=== PATIENT | male | born 1960 | race Caucasian/White ===

== ENCOUNTER 2016-09-06 13:30 | Inpatient (IN) | payer OTHER ==
[~2016-09-06] VITALS: Ht 172.7 cm; Wt 55.3 kg
--- NOTE | ~2016-09-06 | HP ---
PATIENT'S NAME: ANA RICHARDS [facility] AGE: 56 Y [address] ROOM: [place] [address] LOCATION: ED ADMIT DATE: 09/06/2016 History & Physical DISCHARGE DATE: FAMILY PHYSICIAN: Alfredo Tyler MD ATTENDING PHYSICIAN: YANNI REILLY DATE OF SERVICE: 09/06/2016 ADMISSION MAIN DIAGNOSIS: L5-S1 diskitis/osteomyelitis, severe back pain, bilateral L5 radiculopathy. CLINICAL HISTORY: A full dictation was done on this patient in the office today. The patient was seen in my office today for severe mechanical low back pain. He had lumbar spine MRI on September 04 and the MRI findings were very concerning for L5-S1 diskitis. In the office, the patient was complaining of severe low back pain and bilateral leg pain in L5 distribution. The patient reported poor oral hygiene. He denied fever or chills. He denied weakness on his lower extremities. PHYSICAL EXAMINATION: He had tenderness to palpation of the lumbar spine. Motor examination of the lower extremities was normal. The patient's gait was very uncomfortable due to pain. INVESTIGATIONS: Lumbar spine MRI without contrast. It showed evidence of L5-S1 diskitis/osteomyelitis. It showed evidence of significant collapse of the L5- S1 disk that is associated with severe bilateral L5 foraminal stenosis. The STIR sequence showed significant inflammation in the L5, S1 vertebrae. Those features are very concerning for L5-S1 diskitis/osteomyelitis. PLAN: 1. The patient will be admitted to the hospital. 2. Percutaneous aspiration of L5-S1 disk. The procedure will be done by Dr. Pedrito Rascon. 3. Pain management with OxyContin. I reviewed the imaging with the patient and discussed the findings. I then discussed my plan with him. The patient will be admitted today. YANNI REILLY MD PATIENT'S NAME: ANA RICHARDS [facility] AGE: 56 Y [address] ROOM: [place] [address] LOCATION: ED ADMIT DATE: 09/06/2016 History & Physical DISCHARGE DATE: FAMILY PHYSICIAN: Alfredo Tyler MD ATTENDING PHYSICIAN: YANNI REILLY/nisal /[id number] CC: Alfredo Tyler MD D: [id number] T: [id number] HISTORY & PHYSICAL
--- NOTE | ~2016-09-06 | DS ---
PATIENT'S NAME: ANA RICHARDS [facility] AGE: 56 Y [address] ROOM: [id number] [place], [place] [address] LOCATION: GPED ADMIT DATE: 09/06/2016 Discharge Summary DISCHARGE DATE: 09/09/2016 FAMILY PHYSICIAN: Alfredo Tyler MD ATTENDING PHYSICIAN: Ana Valencia ADMISSION MAIN DIAGNOSIS: L5-S1 diskitis/osteomyelitis. DISCHARGE MAIN DIAGNOSIS: L5-S1 diskitis/osteomyelitis. PROCEDURES DURING ADMISSION: Percutaneous aspiration of L5-S1 disk/culture (done by Dr. Pedrito Rascon on 09/06/2016). COMPLICATIONS DURING ADMISSION: None. DISCHARGE INSTRUCTIONS AND FOLLOWUP APPOINTMENTS: 1. Dr. Ana Valencia on 09/20/2016. 2. Infectious Disease on 09/12/2016. 3. Family doctor as needed. 4. Seek immediate medical attention if having increasing low back pain or any new neurological symptoms/deficits. MEDICATIONS ON DISCHARGE: 1. Resume all pre-admission medications except Mobic. 2. Daptomycin intravenous for 8 weeks. 3. OxyContin 20 mg p.o. q.a.m., 10 mg p.o. q.p.m. 4. Oxycodone 5 to 10 mg every 6 hours as needed. HISTORY OF PRESENT ILLNESS AND HOSPITAL COURSE: Clinical History: The patient is a 56-year-old male patient, who was admitted to the hospital on 09/06/2016 with severe low back pain. He had a lumbar spine MRI done on September 04 and the MRI was concerning for L5-S1 diskitis. On the day of admission, the patient underwent percutaneous aspiration of the L5-S1 disk without complication. The procedure was done by Interventional Radiology. The patient was started on OxyContin to treat the severe low back pain. He remained neurologically stable during the admission. The L5-S1 percutaneous aspiration culture came back positive. The culture was positive for Staphylococcus epidermidis. The Staphylococcus epidermidis was sensitive to vancomycin. The patient was started on the appropriate antibiotics. His pain was slowly getting better, and he had no new weakness in his lower extremities. We also inserted PICC line for the intravenous antibiotic and that was done on September 09. On the day of discharge, the patient was examined. He was mobilizing without any assistance. He was still in moderate low back pain which I think is PATIENT'S NAME: ANA RICHARDS [facility] AGE: 56 Y [address] ROOM: [address] [address] LOCATION: GPED ADMIT DATE: 09/06/2016 Discharge Summary DISCHARGE DATE: 09/09/2016 FAMILY PHYSICIAN: Alfredo Tyler MD ATTENDING PHYSICIAN: Ana Valencia related to the L5-S1 diskitis/osteomyelitis. I reviewed the discharge instructions with the patient as well as the treatment plan. The patient will follow with Infectious Disease on September 12. He will follow with his family physician as needed. I instructed the patient to seek medical attention if having new symptoms or increasing low back pain. The patient asked appropriate questions and those were answered to his satisfaction. The patient will be discharged to home today. MD SALEEM LAWLER/marcie /[id number] CC: Alfredo Tyler MD d: 09/10/16 1046 t: 09/10/16 1222, DISCHARGE SUMMARY
--- NOTE | ~2016-09-06 | CON ---
PATIENT'S NAME: ANA RICHARDS [facility] AGE: 56 Y [address] ROOM: [facility] [place] [address] LOCATION: GPED ADMIT DATE: 09/06/2016 Consultation DISCHARGE DATE: FAMILY PHYSICIAN: Alfredo Tyler MD ATTENDING PHYSICIAN: YANNI VALENCIA DATE OF CONSULTATION: 09/07/2016 REFERRING PHYSICIAN: Bisi Shah MD REASON FOR CARDIOLOGY CONSULT: Establishment of cardiac care. HISTORY OF PRESENT ILLNESS: This is a 56-year-old male, who is currently admitted under the care of Dr. Valencia for complaints of diskitis and is currently status post aspiration. 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 When fully questioned about his health history, he is not very knowledgeable about his condition or the full details surrounding his diagnoses. He is aware on his echocardiogram that some of his valves are "leaky." At the time of this consult, he is resting comfortably in bed, but does have complaints of right hip pain specifically when in a seated position. Overall, he denies headaches, dizziness, presyncope, palpitations, nausea, or vomiting. PAST MEDICAL HISTORY: 1. Bqviy-Flzkvrpic-Clgxk syndrome. 2. Hypertension. 3. COPD. 4. Chronic back pain. 5. Rheumatoid arthritis. 6. GERD. 7. Previous pyelonephritis to the point of needing hemodialysis for a short. PAST SURGICAL HISTORY: 1. Open heart surgery in 1978 for his Yyubf-Vaigkqire-Qcexo syndrome. 2. Previous WPW ablation. 3. History of abscess removal from his left knee and calf. FAMILY HISTORY: Reviewed and noncontributory to his care. SOCIAL HISTORY: The patient is a current daily smoker. He smoked for the past 30 years and smokes a pack and half per day. He denies current alcohol use. He says he last quit drinking in July 2016. He also denies illicit drug use. PATIENT'S NAME: ANA RICHARDS [facility] AGE: 56 Y [address] ROOM: [place] [id number] LOCATION: GPED ADMIT DATE: 09/06/2016 Consultation DISCHARGE DATE: FAMILY PHYSICIAN: Alfredo Tyler MD ATTENDING PHYSICIAN: YANNI VALENCIA CURRENT MEDICATIONS: 1. Spiriva 1 puff inhaled twice daily. 2. Ambien 10 mg p.o. daily in the evening. 3. Arava 20 mg p.o. daily in the evening. 4. Coreg 25 mg p.o. twice daily. 5. Deltasone p.o. daily. 6. Neurontin 100 mg p.o. 3 times daily. 7. Norvasc 5 mg p.o. daily. 8. Prinivil 2.5 mg p.o. daily. 9. Nicoderm 14 mg transdermally daily. MEDICATION ALLERGIES: No known medication allergies. REVIEW OF SYSTEMS: Pertinent positive review of systems present in the HPI. All other review of systems evaluated and negative. PHYSICAL EXAMINATION: VITAL SIGNS: Temperature 99.3, pulse 91, respirations 16, blood pressure 135/90, and O2 saturation 95% on room air. The patient weighs 55.3 kg. SKIN: [place], warm, and dry. EYES: Sclerae clear. No xanthelasmas. ENT: Oral mucosa is pink and moist. No jugular venous distention or carotid bruits. CHEST: Respirations are even and unlabored. Lungs are clear to auscultation. HEART: Regular rate and rhythm. Normal S1 and S2. Does have presence of a 2- 3/6 holosystolic murmur best heard at the apex. ABDOMEN: Soft. Nontender. MUSCULOSKELETAL: Equal muscle strength to upper and lower extremities bilaterally against resistance. EXTREMITIES: Peripheral pulses palpable. No clubbing, cyanosis, or edema. PSYCH: Alert and oriented. Mood and affect are appropriate. IMPRESSION AND PLAN: Per Dr. Shah. 1. History of Durby-Ymreqkrnx-Vthif syndrome. 2. Mitral regurgitation. 3. Chronic obstructive pulmonary disease. 4. Diskitis. We will request his previous health records to fully evaluate his heart history both from [facility] as well as [facility]. We will increase his Coreg dose as well as begin lisinopril 2.5 mg p.o. daily. We will get an echocardiogram PATIENT'S NAME: ANA RICHARDS [facility] AGE: 56 Y [address] ROOM: [place] [address] LOCATION: [facility] ADMIT DATE: 09/06/2016 Consultation DISCHARGE DATE: FAMILY PHYSICIAN: Alfredo Tyler MD ATTENDING PHYSICIAN: YANNI VALENCIA in the a.m. to fully evaluate ejection fraction as well as look for wall motion or valvular abnormalities. We will check a set of blood cultures as well as procalcitonin, CRP, proBNP, cardiac enzymes, lipid, and thyroid studies. We will continue to monitor, evaluate, and treat as appropriate. Thank you for this consult. Thank for allowing [facility] to interact in the care of this patient. CRISTO SINGH APRN FOR DEEPAK-MD DOHERTYH/modl /[id number] d: 09/08/16 1843 t: 09/19/16 1431, CONSULTATION REPORT
--- NOTE | ~2016-09-06 | ECHO ---
Transthoracic Echocardiography Report (TTE) Demographics Patient Name ANA RICHARDS Date of Study 09/08/2016 Patient Number [id number] Visit Number [id number] Date of 1960 Room Number G3325 Gender Male Number Age 56 year(s) Referring Jayson Yeh MD Field Organizer Deanna Strong [facility] Physician Pablo Campbell MD Physician Interpreting Efstratiou Supervisor [employer] Physician Adelaide Wilks MD Supervising Ordering Efstratiou MD/MLP Physician Adelaide Wilks MD Nurse Stress Administrative Aide Conclusions Contractility Score Summary Normal Left Ventricular contractility was noted. Summary The estimated left ventricular ejection fraction is 50-55%. Diastolic assessment reveals Grade II pseudonormal diastolic function . The left atrium is mildly dilated by LA volume index measurement. Moderate mitral regurgitation based on a regurgitant orifice area of .41 cm2. The mitral regurgitant jet is anteriorly directed. Mild tricuspid regurgitation by color Doppler. There is mild pulmonary hypertension. The pulmonary pressure (RVSP) is 38 mmHg. Procedure Type of Study TTE procedure:2D Echocardiogram, M-Mode, Doppler , Color Doppler. Procedure Date Date: 09/08/2016 Start: 10:40 AM Study Location: Inpatient Portable Technical Quality: Good visualization Indications:Rnklu-Kbmeihqav-Eqpkz (WPW) and Murmur. Patient Status: Routine Rhythm: Within normal limits HR: 93 bpm BP: 110/60 mmHg M-Mode/2D Measurements LV Diastolic Dimension: 5.28 cm LV Systolic Dimension: 3.46 cm LV Septum Diastolic: 0.83 cm LV PW Diastolic: 0.85 cm AO Root Dimension: 2.6 cm Cardiac Output: 3.23 l/min AV Cusp Separation: 2.4 cm RV Diastolic Dimension: 2.43 cm LA volume: 60 ml LVOT: 1.7 cm RV Base: 3.9 cm LVOT VTI: 15.3 cm RV Mid: 3.2 cm LV Stroke volume: 34.71 ml TAPSE: 1.65 cm TDI-S': 9.87 cm/s Doppler Measurements AV Peak Velocity: 1.01 m/s MV Peak E-Wave: 0.83 m/s AV Peak Gradient: 4.08 mmHg MV Peak A-Wave: 0.54 m/s AV Mean Gradient: 2 mmHg MV E/A Ratio: 1.54 LVOT Peak Velocity: 0.96 m/s MV P1/2t: 71 msec TR Gradient:33.18 mmHg PV Peak Velocity: 0.76 m/s Estimated RAP:5 mmHg PV Peak Gradient: 2.3 mmHg Estimated RVSP: 38 mmHg Estimated PASP: 38.18 mmHg E' Septal Velocity: 0.08 m/s A' Septal Velocity: 0.11 m/s E' Lateral Velocity: 0.11 m/s A' Lateral Velocity: 0.09 m/s Findings Left Ventricle Diastolic assessment reveals Grade II pseudonormal diastolic function . Right Ventricle Mildly dilated right ventricle. Low normal right ventricular systolic performance. Left Atrium The left atrium is mildly dilated by LA volume index measurement. Right Atrium Normal right atrial size. IVC measures .71 cm with inspiratory collapse. Mitral Valve Mitral regurgitation when calculated by the PISA method is moderate based on a regurgitant orifice area of .41 cm2. The mitral regurgitant jet is anteriorly directed. Aortic Valve Normal aortic valve structure and function. Tricuspid Valve Mild tricuspid regurgitation by color Doppler. There is mild pulmonary hypertension. The pulmonary pressure (RVSP) is 38 mmHg. Pulmonic Valve Normal pulmonic valve structure and function. Pericardial Effusion No evidence of pericardial effusion. Miscellaneous Visualized portions of the aortic root and ascending aorta appear normal in size. Pleural Effusion No evidence of pleural effusion. Signature dtt: Bisi Shah dtd: 09/08/16 1040 Physician Self Edit
[2016-09-06] MEDS ORDERED: COREG12.5 MG PO (14:33)
[2016-09-06] MEDS ORDERED: MOBIC15 MG PO (14:34)
[2016-09-06] MEDS ORDERED: ULTRAM50 MG PO (14:34)
[2016-09-06] MEDS ORDERED: AMBIEN10 MG PO (14:34)
[2016-09-06] MEDS ORDERED: DELTASONE5 MG PO (14:35)
[2016-09-06] MEDS ORDERED: NORVASC5 MG PO (14:35)
[2016-09-06] MEDS ORDERED: ARAVA20 MG PO (14:35)
[2016-09-06] MEDS ORDERED: SPIRIVA HANDIHA1 KIT INH (14:35)
[2016-09-06] MEDS ORDERED: TYLENOL EXTRA500 MG PO (14:36)
[2016-09-06] MEDS ORDERED: FLEXERIL10 MG PO (14:36)
[2016-09-06] MEDS ORDERED: ADVIL200 MG PO (14:37)
[2016-09-06 14:38] LABS: HEMATOCRIT 35.3 % (37.0-53.0); HEMOGLOBIN 11.6 g/dL (12.0-17.0); MCH 31.5 pg (27.0-34.0); MCHC 32.9 gm/dL (32.0-36.5); MCV 95.9 fl (83.0-98.0); MPV 8.3 fl (9.4-12.4); PLATELET COUNT 361 K/uL (150-450); RBC 3.68 M/uL (4.00-6.00); RDW-CV 13.9 % (11.9-14.6); WBC 9.9 K/uL (4.0-11.0)
[2016-09-06] MEDS ORDERED: MAALOX MAXIMUM355 ML PO (14:40)
[2016-09-06 14:46] LABS: PTT 26 SECONDS (25-32)
[2016-09-06 15:08] LABS: ABSOLUTE NEUTROPHIL CT (ANC) 8.5 K/uL (1.4-9.0); BANDED NEUTROPHIL # 0.4 K/uL (0.0-0.1); BANDED NEUTROPHILS % 4 %; LYMPHOCYTE % 10 %; MONOCYTE # 0.3 K/uL (0.0-1.0); SEGMENTED NEUTROPHIL # 8.1 K/uL (1.4-9.0); SEGMENTED NEUTROPHIL % 82 %
--- NOTE | 2016-09-06 15:24 | NUR ---
56 Y/O MALE ADMITTED FOR DISCITIS WITH C/O EXTREME PAIN IN HIS BACK WITH SHOOTING PAINS DOWN HIS RT LEG. PT STATES IT HAS BEEN DIFFICULT TO WALK FOR THE PAST TWO MONTHS. PT IS A&OX3. ABLE TO MOVE ALL 4 EXTREMITIES. DIFFICULTY WALKING FOR THE PAST 2 MONTHS R/T BACK & LEG PAIN. 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 HTN, RHEUMATOID ARTHRITIS, HEARTBURN, COPD, CURRENT SMOKER X 30 YRS @ 1 1/2 PPD, USES INHALERS, AND IS ON ORAL PREDNISONE FOR ARTHRITIS. PT HAS HAD PNEUMONIA IN PAST AND RECENTLY BRONCHITIS WITH A SEVERE HARCH PRODUCTIVE COUGH (GREEN SPUTUM). ALSO HX OF KIDNEY INFECTION WITH HOSPITALIZATION & DIALYSIS SEVERAL YEARS AGO. DIF WITH URINE STREAM, FRACTURED PENIS, NOCTURIA. SOB. ADM EDUCATION COMPLETED REPORT GIVEN TO PT PRIMARY CARE NURSE CARROLL LAGUNA
--- NOTE | 2016-09-06 17:19 | NUR ---
D: Patient has a history of hypertension and has had elevated diastolic blood pressures this afternoon. Patient was done for a biopsy of L5-S1 disk space. Guaze dressing to right lower back dry and intact. Patient does continue to complain of pain 4-6 to back with movement and when lying in bed. Patient oxy initial dosed for tonights dose and 0.3 mg dilaudid given a7 1715 last. Patient denies any numbness or tingling of feet.
--- NOTE | 2016-09-07 02:47 | NUR ---
Significant Event: AAOX3. REGULAR DIET. SBA WITH ACTIVITIES, USES FWW. PIV TO RIGHT WRIST. C/O R) FLANK PAIN (6-10/10) FREQUENTLY THROUGHOUT SHIFT. AMBULATED IN [place] ONCE, WENT UP AND DOWN [place] TWICE, TOLERATED WELL. STATED IT HELPED WITH HIS PAIN. TREATED WITH IVP DILAUDID X3 WITH LAST DOSE AT 0150. PT FELL ASLEEP POST TREATMENT. IN ROOM MOST OF SHIFT. CRACKLES NOTED TO LEFT UPPER LOBE. RIGHT CLEAR. PNEUMATICS APPLIED TO BILAT CALVES. DRESSING DRY/INTACT WITH SCANT SHADOWING TO SIDE FACING PT. PREFERS NONCAFFIENATED SODA TO DRINK OVER WATER. ENCOURAGED PT TO INTAKE WATER OVER SODA, BUT PT STATED IT MADE HIM FEEL SICK WHEN HE DRINKS TOO MUCH WATER. Follow up: PAIN. AMBULATION.
--- NOTE | 2016-09-07 16:06 | NUR ---
Significant Event:patient ambulated in halls once, up to bathroom a few times with assist, Dilaudid 0.2mg given x2, Flexaril given at 1400-may have prn, 1850 urine out + 2 voids, 2 bowel movements-denies need for laxative at this time, rates pain 6-7 mainly in his right hip, encouraged deep breaths hourly as lungs are sl coarse at times-coughing at times Follow up:
[2016-09-07 18:08] LABS: ALBUMIN 3.3 gm/dL (3.5-5.0); ALK PHOS 82 IU/L (33-138); ALT 18 IU/L (12-78); ANION GAP 12.7 (10.0-19.0); AST 16 IU/L (10-40); BLOOD UREA NITROGEN 16 mg/dL (6-24); CALCIUM 8.8 mg/dL (8.5-10.5); CHLORIDE 99 mMol/L (96-110); CO2 27 mMol/L (22-32); CPK 92 IU/L (35-332); CREATININE 0.8 mg/dL (0.6-1.3); ESTIMATED GFR (MDRD EQUATION) > 60; POTASSIUM 4.7 mMol/L (3.7-5.1); SODIUM 134 mMol/L (135-145); TOTAL BILIRUBIN 0.2 mg/dL (0.0-1.5); TOTAL PROTEIN 7.6 g/dL (6.0-8.4)
--- NOTE | 2016-09-08 04:10 | NUR ---
Significant Event: AAOX3. REGULAR DIET. SBA WITH FWW. PIV TO R) WRIST SL. AMBULATED IN [place] NEAR BEGINNING OF SHIFT, TOLERATED WELL. CONSISTENTLY C/O RIGHT HIP PAIN. MD NOTIFIED. N/O GABAPENTEN 100MG PO TID, INITIAL DOSED AROUND 2200. PT STATED IT SEEMED TO HAVE HELPED HIS HIP PAIN. 0.2 DILAUDID IVP ADMIN X2, LAST @ 0130. PT RESTED WELL THROUGHOUT SHIFT. 600 IN PO. 850 OUT, WITH ONE VD. NO BM'S. WAS AT BEDSIDE AT BEGINNING OF SHIFT, LEFT AROUND 2100. PNEUMATICS TO BILAT CALVES ON WHEN IN BED. ORDER ALSO WRITTEN FOR IS, 10 TIMES AN HOUR WHILE AWAKE. Follow up:
--- NOTE | 2016-09-08 15:11 | NUR ---
Significant Event:Dilaudid x4 last at 1454, Flexaril given in am, CHG bath given, Vancomycin started, orders for PICC line in, afebrile, walked in campos, Follow up:skin care consultant will need to see Friday
--- NOTE | 2016-09-09 03:33 | NUR ---
Significant Event: PT SLEPT MOST OF SHIFT. AMBULATED IN [place] ONCE AT BEGINNING OF SHIFT, TOLERATED WELL. IS ENCOURAGED, PT VERY COOPERATIVE WITH IT AND USES IT ON HIS OWN, 10 BREATHS EVERY HOUR WHILE AWAKE. 0.3MG DILAUDED ADMIN X3, LAST AT 0025. PT STARTED ON COLACE FOR C/O CONSTIPATION. DIDN'T WANT AN ENEMA. ENCOURAGED FLUID INTAKE. N/O FOR PROTONIX WRITTEN. INITIAL DOSED TONIGHT. 450 IN PO. 395/IV. 2 VOIDS. Follow up:
--- NOTE | 2016-09-09 15:04 | NUR ---
Phone call from Tammy on PEDS at 0915 today. Tammy states patient will be getting a PICC line today and Dr. Valencia wants to discharge him to home today. Need to arrange home infusion for patient with home health care. Met with patient and his . Introduced myself and the role of the CM department. Patient would like me to check with [facility] for his home infusion needs. I spoke to Germaine, music coordinator with [facility] and arranged for them to provide the Daptomycin for patient. [facility] is in network for the patient. He has met all of his $1500 deductible and has met $1800 of his $3000 out of pocket maximum. Shared all of this with and patient. Germaine with [facility] is helping set up home health care through [facility] too. Bettye patient liason with [facility] arrived at the hospital around 1215 to meet with patient and . She showed them the bulb device for the administration of the med at home. Bettye also talked to them about the home health care options and will proceed with setting them up through [facility]. All paperwork and documents were faxed to Germaine at [facility] at [phone] fax. I also contacted [facility] as Dr. Valencia signed a script for a front wheeled walker for patient. I faxed face sheet and script to [facility] at [phone] and a hobbies and crafts sales representative will call the patient as soon as they have checked benefits with insurance and have the walker ready for mushroom picker. Patient should not have any additional discharge needs. All orders have been faxed to above agencies and all patient and 's questions have been answered.
[2016-09-09] MEDS ORDERED: COLACE100 MG PO (15:05)
[2016-09-09] MEDS ORDERED: DAPTOMYCIN500 MG IV (15:25)
[2016-09-09] MEDS ORDERED: NEURONTIN300 MG PO (15:29)
[2016-09-09] MEDS ORDERED: ROXICODONE 5MG (5 MG PO (15:30)
[2016-09-09] MEDS ORDERED: OXYCONTIN EXTEN20 MG PO (15:31)
[2016-09-09] MEDS ORDERED: OXYCONTIN EXTEN10 MG PO (15:31)
--- NOTE | 2016-09-09 16:13 | NUR ---
Significant Event: Afebrile. Continues to have pain in his right hip area but this is controled by PO and IV medications. PICC placed in his upper right arm today and first dose of IV daptomycin given without difficulty. Home health/home infusion arranged. Denies Numbness and tingling to lower extremities and state the neurontin has helped. Steady for the most part with ambulation with use of walker and stand-by assist. Biopsy/culture site from back is scabbed and without redness or drainage. Follow up:Dismissed. PICC line intact.
== END 2016-09-09 16:13 | disposition home health service (06) | DRG 478 ==
LOC: GPED 13:47
PROVIDERS: Internal Medicine Cardiovascular Disease; ADMIT Neurological Surgery
PROC: 0Q903ZX Drainage of Lumbar Vertebra, Percutaneous Approach, Diagnostic (ICD-10-PCS; principal; 2016-09-06)
PROC: 02HV33Z Insertion of Infusion Device into Superior Vena Cava, Percutaneous Approach (ICD-10-PCS; 2016-09-09)
DX: M46.27 Osteomyelitis of vertebra, lumbosacral region (principal); I42.9 Cardiomyopathy, unspecified; M46.47 Discitis, unspecified, lumbosacral region; I10 Essential (primary) hypertension; M06.9 Rheumatoid arthritis, unspecified; J44.9 Chronic obstructive pulmonary disease, unspecified; K21.9 Gastro-esophageal reflux disease without esophagitis; F17.200 Nicotine dependence, unspecified, uncomplicated; I34.0 Nonrheumatic mitral (valve) insufficiency; I45.6 Pre-excitation syndrome; K59.00 Constipation, unspecified; B95.7 Other staphylococcus as the cause of diseases classified elsewhere; R26.9 Unspecified abnormalities of gait and mobility
CPT/HCPCS: C1751; J0878; J1170; J2250; J3010; J3370; J7030; J7040; J7050; J7512

== ENCOUNTER → 2016-09-17 | Outpatient (CLI) | payer OTHER ==
[~2016-09-17] MED LIST: ADVIL200 MG PO; AMBIEN10 MG PO; ARAVA20 MG PO; COLACE100 MG PO; COREG12.5 MG PO; CUBICIN (NON-F500 MG IV; DAPTOMYCIN500 MG IV; DELTASONE2.5 MG PO; DELTASONE5 MG PO; ELAVIL25 MG PO; FLEXERIL10 MG PO; LYRICA 150MG C150 MG PO; MAALOX MAXIMUM355 ML PO; MOBIC15 MG PO; NEURONTIN300 MG PO; NORVASC5 MG PO; OXYCONTIN EXTEN10 MG PO; OXYCONTIN EXTEN20 MG PO; OXYMORPHONE HCL30 MG PO; OXYMORPHONE HCL5 MG PO; ROXICODONE 5MG (5 MG PO; SPIRIVA HA30 CAP/INH PO; SPIRIVA HANDIHA1 KIT INH; TYLENOL EXTRA500 MG PO; ULTRAM50 MG PO
[2016-09-17 16:02] LABS: BASOPHIL % 0.2 %; EOSINOPHIL # 0.2 K/uL (0.0-0.5); EOSINOPHIL % 1.6 %; HEMATOCRIT 39.5 % (37.0-53.0); HEMOGLOBIN 12.8 g/dL (12.0-17.0); IMMATURE GRANULOCYTE % 0.3 %; LYMPHOCYTE # 1.1 K/uL (0.8-4.0); LYMPHOCYTE % 10.3 %; MCHC 32.4 gm/dL (32.0-36.5); MCV 95.6 fl (83.0-98.0); MONOCYTE # 0.8 K/uL (0.0-1.0); MONOCYTE % 7.9 %; MPV 8.9 fl (9.4-12.4); NEUTROPHIL # (ANC) 8.5 K/uL (1.4-9.0); NEUTROPHIL % 79.7 %; NRBC % 0 /100WBC (0-0.00); PLATELET COUNT 386 K/uL (150-450); RBC 4.13 M/uL (4.00-6.00); RDW-CV 13.5 % (11.9-14.6); WBC 10.6 K/uL (4.0-11.0)
[2016-09-17 16:15] LABS: ALBUMIN 3.4 gm/dL (3.5-5.0); ALK PHOS 186 IU/L (33-138); ALT 58 IU/L (12-78); ANION GAP 12.8 (10.0-19.0); AST 78 IU/L (10-40); BLOOD UREA NITROGEN 14 mg/dL (6-24); CALCIUM 8.7 mg/dL (8.5-10.5); CHLORIDE 95 mMol/L (96-110); CO2 28 mMol/L (22-32); CPK 108 IU/L (35-332); ESTIMATED GFR (MDRD EQUATION) > 60; POTASSIUM 4.8 mMol/L (3.7-5.1); SODIUM 131 mMol/L (135-145); TOTAL PROTEIN 7.7 g/dL (6.0-8.4)
[2016-09-17 16:18] LABS: TOTAL BILIRUBIN 0.5 mg/dL (0.0-1.5)
== END | disposition disaster alternative care site (69) ==
LOC: LOC 15:55
PROVIDERS: Internal Medicine Infectious Disease
DX: M46.28 Osteomyelitis of vertebra, sacral and sacrococcygeal region (principal)

== ENCOUNTER 2016-09-23 16:47 | Emergency (ER) | payer OTHER ==
--- NOTE | ~2016-09-23 | ER ---
PATIENT'S NAME: ANA RICHARDS [facility] AGE: 56 Y [address] ROOM: [place] [address] LOCATION: [facility] ADMIT DATE: 09/23/2016 ER/Outpatient Report DISCHARGE DATE: 09/23/2016 FAMILY PHYSICIAN: Alfredo Tyler MD ATTENDING PHYSICIAN: Kain Merrill Time of Arrival: 1648 hours. Time of Evaluation: 1648 hours. CHIEF COMPLAINT: Right hip pain. HISTORY OF PRESENT ILLNESS: The patient states that he was recently here in the hospital with diskitis and osteomyelitis of his lower back, was sent home on September 16, 2016. States that he has had continuation of pain, starts in the right hip, it goes all the way down his leg, into his foot. Pain has gotten worse as the week has gone on. He does have some medications that are prescribed for him, but he has not gone to pick them up yet. He did see Dr. Alfredo Tyler today, and Dr. Tyler wanted him to be reevaluated here in the ER. He denies having any recent injury, has not fallen, has not lifted anything, has not done anything out of the norm. ALLERGIES: NO KNOWN ALLERGIES. CURRENT MEDICATIONS: On his chart and reviewed by me. PAST MEDICAL HISTORY: Includes diskitis, osteomyelitis, Cddqo-Clvpiajdk-Cqstz syndrome, hypertension, COPD, chronic back pain, rheumatoid arthritis, and reflux. 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 SOCIAL HISTORY: Does smoke a pack per day and has for the last 30 years. Denies use of drugs or alcohol. He presents to the ER with his . REVIEW OF SYSTEMS: All negative other than those mentioned in the HPI. PHYSICAL EXAMINATION: VITAL SIGNS: He weighs 52.5 kg, blood pressure is 141/93, pulse of 90, PATIENT'S NAME: ANA RICHARDS [facility] AGE: 56 Y [address] ROOM: [place] [address] LOCATION: [facility] ADMIT DATE: 09/23/2016 ER/Outpatient Report DISCHARGE DATE: 09/23/2016 FAMILY PHYSICIAN: Alfredo Tyler MD ATTENDING PHYSICIAN: Kain Merrill respirations 22, temperature of 97.7, O2 saturations 100% on room air. GENERAL: He is awake, alert, and oriented x4. SKIN: His skin is pink, warm, and dry. RESPIRATIONS: Even and nonlabored. Lung sounds are clear throughout. HEART: Regular rate and rhythm. He is tender to palpate along the right hip area. No peripheral edema noted. EXTREMITIES: Positive peripheral pulses. He has pain in the hip with range of motion. EMERGENCY DEPARTMENT COURSE: The patient was given Percocet 5/[address] Merrill did examine the patient. Lab work was done. CBC is within normal limits. Sedimentation rate was 53; on September 17, 2016, it was 52. Chem panel shows sodium 138, potassium is 4, chloride 105, BUN is 12 with a creatinine of 0.8. Alkaline phosphatase is 177. CRP is 3.73; on September 17, 2016, it was 10.4. EMERGENCY DEPARTMENT COURSE: Dr. Merrill did talk with Dr. Valencia. He recommended doing an MRI. MRI with and without contrast was done of the lumbar spine. Radiologist reports no acute focal findings. Dr. Merrill did talk to the patient regarding the MRI results. IMPRESSION: Hip pain. PLAN: Home, rest. Continue his current medications and treatment plans. He is to get the medications filled that he has prescriptions for and to follow up with Dr. Tyler within the next [address] Valencia. He and his verbalized understanding. JUANCARLOS LYNNE APRN FOR MD DEYSI SUTHERLAND/marcie /[id number] I have personally evaluated this patient. I discussed the patient's care with the CHEF TEACHER and agree with the assessment and plan as documented above. Kain Merrill MD d: 09/24/16 0105 t: 10/08/16 0806, OUTPATIENT REPORT
[~2016-09-23 16:47] MED LIST changes: -CUBICIN (NON-F500 MG IV; -DELTASONE2.5 MG PO; -ELAVIL25 MG PO; -LYRICA 150MG C150 MG PO; -OXYMORPHONE HCL30 MG PO; -OXYMORPHONE HCL5 MG PO; -SPIRIVA HA30 CAP/INH PO
[2016-09-23 17:29] LABS: BASOPHIL % 0.3 %; EOSINOPHIL # 0.1 K/uL (0.0-0.5); EOSINOPHIL % 0.6 %; HEMATOCRIT 42.7 % (37.0-53.0); HEMOGLOBIN 14.1 g/dL (12.0-17.0); IMMATURE GRANULOCYTE # 0.1 K/uL (0.0-0.3); IMMATURE GRANULOCYTE % 0.6 %; LYMPHOCYTE # 0.8 K/uL (0.8-4.0); LYMPHOCYTE % 10.5 %; MCH 30.7 pg (27.0-34.0); MONOCYTE # 0.4 K/uL (0.0-1.0); MONOCYTE % 4.4 %; MPV 8.6 fl (9.4-12.4); NEUTROPHIL # (ANC) 6.7 K/uL (1.4-9.0); NEUTROPHIL % 83.6 %; NRBC % 0 /100WBC (0-0.00); PLATELET COUNT 334 K/uL (150-450); RBC 4.59 M/uL (4.00-6.00); RDW-CV 13.4 % (11.9-14.6)
[2016-09-23 17:43] LABS: ALBUMIN 3.4 gm/dL (3.5-5.0); ALK PHOS 177 IU/L (33-138); ALT 25 IU/L (12-78); AST 13 IU/L (10-40); BLOOD UREA NITROGEN 12 mg/dL (6-24); CALCIUM 8.8 mg/dL (8.5-10.5); CHLORIDE 105 mMol/L (96-110); CO2 24 mMol/L (22-32); CREATININE 0.8 mg/dL (0.6-1.3); ESTIMATED GFR (MDRD EQUATION) > 60; SODIUM 138 mMol/L (135-145); TOTAL BILIRUBIN 0.4 mg/dL (0.0-1.5); TOTAL PROTEIN 7.7 g/dL (6.0-8.4)
== END 2016-09-23 18:34 | disposition disaster alternative care site (69) ==
LOC: GMED 16:47
PROVIDERS: Emergency Medicine
DX: M25.551 Pain in right hip (principal); M06.9 Rheumatoid arthritis, unspecified; K21.9 Gastro-esophageal reflux disease without esophagitis; I10 Essential (primary) hypertension; J44.9 Chronic obstructive pulmonary disease, unspecified; M86.9 Osteomyelitis, unspecified; I45.6 Pre-excitation syndrome; F17.210 Nicotine dependence, cigarettes, uncomplicated
CPT/HCPCS: A9577

== ENCOUNTER → 2016-09-23 | Outpatient (CLI) | payer OTHER ==
[2016-09-23 15:12] LABS: BASOPHIL % 0.3 %; EOSINOPHIL # 0.2 K/uL (0.0-0.5); HEMATOCRIT 40.6 % (37.0-53.0); HEMOGLOBIN 13.5 g/dL (12.0-17.0); IMMATURE GRANULOCYTE % 0.5 %; MCH 30.8 pg (27.0-34.0); MCHC 33.3 gm/dL (32.0-36.5); MCV 92.7 fl (83.0-98.0); MONOCYTE # 0.9 K/uL (0.0-1.0); MONOCYTE % 11.5 %; MPV 8.9 fl (9.4-12.4); NEUTROPHIL # (ANC) 4.7 K/uL (1.4-9.0); NEUTROPHIL % 59.7 %; NRBC % 0 /100WBC (0-0.00); PLATELET COUNT 402 K/uL (150-450); RBC 4.38 M/uL (4.00-6.00); RDW-CV 13.5 % (11.9-14.6); WBC 7.9 K/uL (4.0-11.0)
[2016-09-23 15:34] LABS: ALBUMIN 3.2 gm/dL (3.5-5.0); ALK PHOS 168 IU/L (33-138); ALT 28 IU/L (12-78); ANION GAP 15.3 (10.0-19.0); AST 17 IU/L (10-40); BLOOD UREA NITROGEN 13 mg/dL (6-24); CALCIUM 8.7 mg/dL (8.5-10.5); CHLORIDE 100 mMol/L (96-110); CO2 26 mMol/L (22-32); CPK 41 IU/L (35-332); CREATININE 0.8 mg/dL (0.6-1.3); ESTIMATED GFR (MDRD EQUATION) > 60; POTASSIUM 4.3 mMol/L (3.7-5.1); SODIUM 137 mMol/L (135-145); TOTAL BILIRUBIN 0.4 mg/dL (0.0-1.5); TOTAL PROTEIN 7.4 g/dL (6.0-8.4)
== END | disposition disaster alternative care site (69) ==
LOC: LOC 15:08
PROVIDERS: Neurological Surgery
DX: M46.28 Osteomyelitis of vertebra, sacral and sacrococcygeal region (principal)

== ENCOUNTER → 2016-09-30 | Outpatient (CLI) | payer OTHER ==
[~2016-09-30] MED LIST changes: +CUBICIN (NON-F500 MG IV; +DELTASONE2.5 MG PO; +ELAVIL25 MG PO; +LYRICA 150MG C150 MG PO; +OXYMORPHONE HCL30 MG PO; +OXYMORPHONE HCL5 MG PO; +SPIRIVA HA30 CAP/INH PO
[2016-09-30 16:43] LABS: BASOPHIL % 0.3 %; EOSINOPHIL # 0.2 K/uL (0.0-0.5); EOSINOPHIL % 1.9 %; HEMATOCRIT 44.9 % (37.0-53.0); HEMOGLOBIN 14.5 g/dL (12.0-17.0); IMMATURE GRANULOCYTE % 0.3 %; LYMPHOCYTE % 9.2 %; MCH 30.7 pg (27.0-34.0); MCHC 32.3 gm/dL (32.0-36.5); MCV 94.9 fl (83.0-98.0); MONOCYTE # 0.4 K/uL (0.0-1.0); MONOCYTE % 3.5 %; MPV 8.9 fl (9.4-12.4); NEUTROPHIL # (ANC) 9.1 K/uL (1.4-9.0); NEUTROPHIL % 84.8 %; NRBC % 0 /100WBC (0-0.00); RBC 4.73 M/uL (4.00-6.00); RDW-CV 13.5 % (11.9-14.6); WBC 10.7 K/uL (4.0-11.0)
[2016-09-30 16:45] LABS: PLATELET COUNT 402 K/uL (150-450)
[2016-09-30 16:56] LABS: ALBUMIN 3.5 gm/dL (3.5-5.0); ALK PHOS 114 IU/L (33-138); ALT 19 IU/L (12-78); ANION GAP 12.5 (10.0-19.0); AST 15 IU/L (10-40); BLOOD UREA NITROGEN 9 mg/dL (6-24); CALCIUM 9.1 mg/dL (8.5-10.5); CHLORIDE 106 mMol/L (96-110); CO2 25 mMol/L (22-32); CPK 58 IU/L (35-332); CREATININE 0.8 mg/dL (0.6-1.3); ESTIMATED GFR (MDRD EQUATION) > 60; POTASSIUM 4.5 mMol/L (3.7-5.1); SODIUM 139 mMol/L (135-145); TOTAL PROTEIN 7.8 g/dL (6.0-8.4)
[2016-09-30 17:00] LABS: TOTAL BILIRUBIN 0.2 mg/dL (0.0-1.5)
== END | disposition disaster alternative care site (69) ==
LOC: LOC 16:35
PROVIDERS: Internal Medicine Infectious Disease
DX: M46.28 Osteomyelitis of vertebra, sacral and sacrococcygeal region (principal)

== ENCOUNTER → 2016-10-07 | Outpatient (CLI) | payer OTHER | END | disposition disaster alternative care site (69) | LOC: LOC 15:52 | DX: M46.28 Osteomyelitis of vertebra, sacral and sacrococcygeal region (principal) ==

== ENCOUNTER → 2016-10-14 | Outpatient (CLI) | payer OTHER | END | disposition disaster alternative care site (69) | LOC: LOC 15:55 | DX: M46.28 Osteomyelitis of vertebra, sacral and sacrococcygeal region (principal) ==

== ENCOUNTER → 2016-10-22 | Outpatient (CLI) | payer OTHER | END | disposition disaster alternative care site (69) | LOC: LOC 15:58 | DX: M46.28 Osteomyelitis of vertebra, sacral and sacrococcygeal region (principal) ==

== ENCOUNTER → 2016-10-29 | Outpatient (CLI) | payer OTHER | END | disposition disaster alternative care site (69) | LOC: LOC 16:01 | DX: M46.28 Osteomyelitis of vertebra, sacral and sacrococcygeal region (principal) ==

== ENCOUNTER → 2016-11-05 | Outpatient (CLI) | payer OTHER | END | disposition disaster alternative care site (69) | LOC: LOC 17:39 | DX: M46.28 Osteomyelitis of vertebra, sacral and sacrococcygeal region (principal) ==

== ENCOUNTER 2016-11-08 21:09 | Emergency (ER) | payer OTHER ==
--- NOTE | ~2016-11-08 | ER ---
PATIENT'S NAME: ANA RICHARDS [facility] AGE: 56 Y [address] ROOM: [place] [address] LOCATION: [facility] ADMIT DATE: 11/08/2016 ER/Outpatient Report DISCHARGE DATE: 11/08/2016 FAMILY PHYSICIAN: Alfredo Tyler MD ATTENDING PHYSICIAN: Zora Jenkins HISTORY OF PRESENT ILLNESS: This is a 56-year-old male, who presents today with chief complaint of right lower back pain and right hip pain. The patient has had this pain for about 2 months after he was diagnosed with L5-S1 diskitis and osteomyelitis. He currently has a PICC line in his right AV and has been having IV antibiotics through that. He is on 2 different antibiotics at this time. The patient reports that he was sent home with some narcotics, which he says is not working. He went and called his pain doctor, Dr. Jones and Dr. Jones up the dose, but he says it is still not working. The patient is worried that the infection is getting worse. Although, he denies any fever, chills, nausea, vomiting, or any other complaints at this time. He was also here on 09/23/2016 for increasing pain under which he had an MRI done with and without contrast and the radiologist reported that there were no acute focal findings. He reports that he called Dr. Tyler to ask what to do and Dr. Tyler said to go to the ER. No other complaints at this time. He states that he is compliant with his medications. PAST MEDICAL HISTORY: Includes diskitis, osteomyelitis, WPW syndrome, hypertension, COPD, chronic back pain, rheumatoid arthritis, and reflux. PAST SURGICAL HISTORY: History of open heart surgery at the age of 18 with WPW and also had an ablation 5 years ago for the WPW. SOCIAL HISTORY: He smokes a pack per day and has done so for the last 30 plus years. Denies any IV drug use ever. No alcohol use. REVIEW OF SYSTEMS: Reviewed by me and negative with the exception of those discussed in the HPI. ALLERGIES: NONE. MEDICATIONS: Please see med list. PHYSICAL EXAMINATION: PATIENT'S NAME: ANA RICHARDS [facility] AGE: 56 Y [address] ROOM: [place] [address] LOCATION: [facility] ADMIT DATE: 11/08/2016 ER/Outpatient Report DISCHARGE DATE: 11/08/2016 FAMILY PHYSICIAN: Alfredo Tyler MD ATTENDING PHYSICIAN: Zora Jenkins VITAL SIGNS: The patient is 5 foot 8 inch, his weight is 54.2 kilos, blood pressure 170/112, heart rate 94, respiratory rate 16, temperature is 97.6 and tympanic, saturating 97% on room air. GENERAL: The patient looks uncomfortable. He did walk into the ER although with the limp. He is lying on his left side and holding his right back. He looks mildly uncomfortable, although nontoxic. He is able to move his legs. NEUROLOGIC: He is alert and oriented x4. He is able to move all extremities. His GCS is 15. SKIN: Warm, dry, and intact. HEART: Regular rate and rhythm. LUNGS: His lungs sounds are clear. ABDOMEN: Soft, nontender. BACK: He has some tenderness at the L5 although it is not erythematous and it is not warm to touch. I do not feel like any mass or bulge there. He is also mildly tender at the right SI. He says that when I touch it, he feels like the shooting pain down his legs. He denies any bowel or bladder symptoms either though. EXTREMITIES: He has diminished strength in that right lower extremity secondary to pain, but he reports intact sensation to bilateral lower extremities. As noted, there is no redness or erythema that is noted on his back. EMERGENCY ROOM COURSE: The patient was given 1 mg of IV Dilaudid through his PICC line. He says he feels a lot better. He thinks this was working, so we will be sending him home with this. I did tell him that he is on a lot of pain medications at this time, so I can only give him a little bit until he can follow up with Dr. Jones. I asked him to call Dr. Jones tomorrow. The patient understanding doubt new infection and worsening infection. He does not have any new neuro symptoms, just sort of pain that is not intractable though. I would not pursue any imaging at this time or lab work as it seems like an exacerbation of chronic pain, but no neuro symptoms and no new red flags on physical or history. IMPRESSION: Back pain. MD ARNULFO GRAVES/marcie PATIENT'S NAME: ANA RICHARDS [facility] AGE: 56 Y [address] ROOM: [place] [address] LOCATION: [facility] ADMIT DATE: 11/08/2016 ER/Outpatient Report DISCHARGE DATE: 11/08/2016 FAMILY PHYSICIAN: Alfredo Tyler MD ATTENDING PHYSICIAN: Zora Jenkins /[id number] d: 11/09/160 t: 11/11/16 0028, OUTPATIENT REPORT
[~2016-11-08 21:09] MED LIST changes: -CUBICIN (NON-F500 MG IV; -DELTASONE2.5 MG PO; -ELAVIL25 MG PO; -LYRICA 150MG C150 MG PO; -OXYMORPHONE HCL30 MG PO; -OXYMORPHONE HCL5 MG PO; -SPIRIVA HA30 CAP/INH PO
== END 2016-11-08 22:16 | disposition disaster alternative care site (69) ==
LOC: GMED 21:09
DX: M54.5 Low back pain (principal); G89.29 Other chronic pain; J44.9 Chronic obstructive pulmonary disease, unspecified; I10 Essential (primary) hypertension; M06.9 Rheumatoid arthritis, unspecified; K21.9 Gastro-esophageal reflux disease without esophagitis
CPT/HCPCS: J1170

== ENCOUNTER → 2016-11-11 | Outpatient (CLI) | payer OTHER ==
[~2016-11-11] MED LIST changes: +CUBICIN (NON-F500 MG IV; +DELTASONE2.5 MG PO; +ELAVIL25 MG PO; +LYRICA 150MG C150 MG PO; +OXYMORPHONE HCL30 MG PO; +OXYMORPHONE HCL5 MG PO; +SPIRIVA HA30 CAP/INH PO
== END | disposition disaster alternative care site (69) ==
LOC: GRAD 14:00
DX: M54.16 Radiculopathy, lumbar region (principal); R93.8 Abnormal findings on diagnostic imaging of other specified body structures; M47.9 Spondylosis, unspecified; M43.16 Spondylolisthesis, lumbar region; M48.06 Spinal stenosis, lumbar region

== ENCOUNTER → 2016-11-12 | Outpatient (CLI) | payer OTHER | END | disposition disaster alternative care site (69) | LOC: LOC 15:11 | DX: M46.28 Osteomyelitis of vertebra, sacral and sacrococcygeal region (principal) ==

== ENCOUNTER 2016-11-13 20:49 | Emergency (ER) | payer OTHER ==
--- NOTE | ~2016-11-13 | ER ---
PATIENT'S NAME: ANA RICHARDS [facility] AGE: 56 Y [address] ROOM: [place] [address] LOCATION: ED ADMIT DATE: 11/13/2016 ER/Outpatient Report DISCHARGE DATE: 11/13/2016 FAMILY PHYSICIAN: Alfredo Tyler MD ATTENDING PHYSICIAN: Carla Caceres Time of Arrival: 2049 hours. Time of Evaluation: 2200 hours. IDENTIFICATION: A 56-year-old male. CHIEF COMPLAINT: Bruising. HISTORY OF PRESENT ILLNESS: The patient has been treated since August for diskitis with IV antibiotics. He has a PICC line in his right upper extremity. Yesterday, they tried to draw blood from it and could not draw back, but it flushed okay. He is getting his antibiotic, which he is not sure what it is. He said it begins with a "D." It looks like in August he was getting daptomycin. They infused that tonight at about 5:00 p.m. Normally, he gets up between 3:00 and 4:00. After that, he noted some bruising above his PICC line area and a "pinching" sensation. No other problems or concerns. No numbness or tingling. No swelling in his arm. No fever or chills. He continues to have back pain, and states that he recently had an MRI and his significant other said it "was bad." They have an appointment tomorrow morning with Infectious Disease at 9:00 a.m. I do see an MRI that was dated November 11 showing increased signal within the disk space at the L4-L5 level raising the question of possible diskitis, everything else appeared to be stable. PAST MEDICAL HISTORY: ALLERGIES: NO KNOWN DRUG ALLERGIES. CURRENT MEDICATIONS: 1. Oxymorphone ER 30 mg b.i.d. 2. Oxymorphone ER 5 mg 3 times a day as needed. 3. Norvasc. 4. Coreg. 5. Prednisone 10 mg daily. 6. Gabapentin 300 mg 3 times a day. 7. His IV antibiotics, again he is not certain what it is, but could be daptomycin. PATIENT'S NAME: ANA RICHARDS [facility] AGE: 56 Y [address] ROOM: [place] [address] LOCATION: [facility] ADMIT DATE: 11/13/2016 ER/Outpatient Report DISCHARGE DATE: 11/13/2016 FAMILY PHYSICIAN: Alfredo Tyler MD ATTENDING PHYSICIAN: Carla Caceres MEDICAL PROBLEMS: Diskitis, osteomyelitis, Uhejw-Piiefguqp-Vvkzf syndrome, hypertension, COPD, chronic back pain, rheumatoid arthritis, and gastroesophageal reflux disease. PRIOR SURGERIES: Open heart surgery in 1978 for his Sdkdt-Dfhlcmama-Idlqh syndrome and previous WPW ablation and history of abscess removal from his left knee and calf. SOCIAL HISTORY: The patient is , lives here in [place]. He works at [employer]. Tobacco use, 1 pack per day. Alcohol use, denies. Drug use, denies. REVIEW OF SYSTEMS: All systems reviewed and negative other than what is noted in the HPI. PHYSICAL EXAMINATION: VITAL SIGNS: Weight 53.8 kg. Blood pressure 132/89, pulse 91, respirations 20, temperature 97.8, and saturations 95% on room air. GENERAL: A 56-year-old male, in no acute distress. HEENT: Unremarkable. LUNGS: Clear to auscultation. HEART: Regular rate and rhythm. ABDOMEN: Soft, nondistended, nontender. SKIN: [place], warm, and dry. No lesions or rashes noted. The patient does have an area of ecchymosis above his PICC line, nontender to palpation, but he does state has a "pinching" sensation. EXTREMITIES: He has a good distal pulse. Capillary refill is normal. Sensation is intact. He has no redness or warmth. No axillary lymphadenopathy. He complains of pain that radiates down his right leg, but that is not new. IMAGING DATA: He had a recent MRI done and followup appointment with Infectious Disease tomorrow. IMPRESSION AND PLAN: 1. Bruising above PICC line. They will not be using this PICC line again until tomorrow afternoon. I advised that he follow up tomorrow with PICC nurse on-call when he is seeing Infectious Disease in the morning. Watch for redness, swelling, fever, or chills; if see any of that, return sooner. 2. Diskitis with continued pain down his right leg. Pain medicine as already ordered at home, and keep his followup appointment with Infectious Disease in the morning. The patient understands and agrees PATIENT'S NAME: ANA RICHARDS [facility] AGE: 56 Y [address] ROOM: [place] [address] LOCATION: [facility] ADMIT DATE: 11/13/2016 ER/Outpatient Report DISCHARGE DATE: 11/13/2016 FAMILY PHYSICIAN: Alfredo Tyler MD ATTENDING PHYSICIAN: Carla Caceres and all questions have been answered. MD HILDA INIGUEZ/modl /[id number] d: 11/14/16623 t: 11/24/16629, OUTPATIENT REPORT
[~2016-11-13 20:49] MED LIST changes: -CUBICIN (NON-F500 MG IV; -DELTASONE2.5 MG PO; -ELAVIL25 MG PO; -LYRICA 150MG C150 MG PO; -OXYMORPHONE HCL30 MG PO; -OXYMORPHONE HCL5 MG PO; -SPIRIVA HA30 CAP/INH PO
== END 2016-11-13 22:26 | disposition disaster alternative care site (69) ==
LOC: GMED 20:49
DX: S40.022A Contusion of left upper arm, initial encounter (principal); M46.46 Discitis, unspecified, lumbar region; I10 Essential (primary) hypertension; J44.9 Chronic obstructive pulmonary disease, unspecified; K21.9 Gastro-esophageal reflux disease without esophagitis; M06.9 Rheumatoid arthritis, unspecified; F17.210 Nicotine dependence, cigarettes, uncomplicated; Z79.899 Other long term (current) drug therapy; X58.XXXA Exposure to other specified factors, initial encounter

== ENCOUNTER 2016-11-26 15:15 | Emergency (ER) | payer OTHER ==
--- NOTE | ~2016-11-26 | ER ---
PATIENT'S NAME: ANA RICHARDS [facility] AGE: 56 Y [address] ROOM: [place] [id number] LOCATION: [facility] ADMIT DATE: 11/26/2016 ER/Outpatient Report DISCHARGE DATE: 11/26/2016 FAMILY PHYSICIAN: Alfredo Tyler MD ATTENDING PHYSICIAN: Kain Cintron Time of Patient's Arrival: 1515 hours. Time of Patient's Evaluation: 1545 hours. CHIEF COMPLAINT: Nausea and vomiting. HISTORY OF PRESENT ILLNESS: This is a 56-year-old male who presents to the ER, who has been dealing with diskitis for several weeks. He states he had a PICC line in place, has been receiving some IV antibiotics, and they discontinued the PICC line a couple of weeks ago. He states he has been doing oral antibiotics for this as well as seeing an Infectious Disease doctor. He states that he has chronic pain from this and has been seeing a pain specialist for this as well. He states the nausea and vomiting started on Friday, he has had some loose stools though he would not say that it was diarrhea, he has had no constipation, and a little bit of chills as well. The patient did go and see his primary care physician in the clinic and they sent him here to the emergency room to be evaluated. The patient denies any significant abdominal pain. No chest pain. ALLERGIES: NO KNOWN ALLERGIES. MEDICATIONS: Please see medication list in nurse's notes. PAST MEDICAL HISTORY: 1. Rheumatoid arthritis. 2. Murbp-Jyfzjwinp-Klndu. 3. Diskitis. 4. COPD. 5. Hypertension. 6. Osteoarthritis. PAST SURGERIES: Open heart surgery. SOCIAL HISTORY: He smokes cigarettes. He denies any drug or alcohol use. PATIENT'S NAME: ANA RICHARDS [facility] AGE: 56 Y [address] ROOM: [place] [address] LOCATION: [facility] ADMIT DATE: 11/26/2016 ER/Outpatient Report DISCHARGE DATE: 11/26/2016 FAMILY PHYSICIAN: Alfredo Tyler MD ATTENDING PHYSICIAN: Kain Cintron REVIEW OF SYSTEMS: A 10-point review of systems was completed and was negative with the exception of those discussed in the HPI. PHYSICAL EXAMINATION: VITAL SIGNS: Weight 54.1 kg taken, blood pressure is 136/94, pulse 103, respirations 22, temperature 97.1 degrees tympanically, and saturation is 98% on room air. [place] Coma Score is 15. GENERAL: Alert, slightly anxious-appearing 56-year-old, in mild distress. HEENT: Head: Normocephalic. Eyes: Pupils are equal and reactive to light. He does display moist mucous membranes. LUNGS: Clear to auscultation bilaterally. HEART: Slightly tachycardic. ABDOMEN: Soft. He has mild tenderness in all 4 quadrants with palpation. No guarding, no rebound tenderness. He has good bowel sounds throughout. No masses are palpated. EXTREMITIES: No clubbing or cyanosis. He has full range of motion of all limbs. LABORATORY DATA: CBC: White count of 7.7, hemoglobin 15.8, platelets 257. Sedimentation rate is 18. CMS was unremarkable. Amylase 33, lipase is 145. CRP is 2.97. H. pylori was negative. Lactate is 1.5. Procalcitonin is 0.06. IMPRESSION: 1. Nausea and vomiting. 2. History of diskitis, he is currently on antibiotics. 3. Chronic pain. ASSESSMENT AND PLAN: We did start an IV here in the emergency room, and we did give him a liter of IV fluids, 4 mg of Zofran, and 1 mg of Dilaudid. The patient states he is feeling much better. He had no emesis while he was here in the emergency room. I did give the patient the option of staying in the hospital for further pain control and fluids. The patient states that he just would like to go home, so I am going to send him home with Zofran to use as directed. I advised small amounts of fluids frequently and continue to monitor symptoms closely. He needs to call his primary care physician tomorrow with an update, otherwise return here to the emergency room if he worsens. The patient and the patient's understand and agree with care. WESTLEY CM PA-C FOR KAIN CINTRON MD PATIENT'S NAME: ANA RICHARDS [facility] AGE: 56 Y [address] ROOM: [place] [address] LOCATION: [facility] ADMIT DATE: 11/26/2016 ER/Outpatient Report DISCHARGE DATE: 11/26/2016 FAMILY PHYSICIAN: Alfredo Tyler MD ATTENDING PHYSICIAN: Kain Cintron/marcie /[id number] d: 11/26/16 2307 t: 12/04/16 0922, OUTPATIENT REPORT
[2016-11-26 16:26] LABS: BASOPHIL % 0.4 %; EOSINOPHIL # 0.4 K/uL (0.0-0.5); EOSINOPHIL % 4.5 %; HEMATOCRIT 47.7 % (37.0-53.0); HEMOGLOBIN 15.8 g/dL (12.0-17.0); IMMATURE GRANULOCYTE % 0.3 %; LYMPHOCYTE # 1.3 K/uL (0.8-4.0); LYMPHOCYTE % 16.9 %; MCHC 33.1 gm/dL (32.0-36.5); MCV 90.5 fl (83.0-98.0); MONOCYTE % 12.3 %; MPV 9.2 fl (9.4-12.4); NEUTROPHIL # (ANC) 5.1 K/uL (1.4-9.0); NEUTROPHIL % 65.6 %; NRBC % 0 /100WBC (0-0.00); PLATELET COUNT 257 K/uL (150-450); RBC 5.27 M/uL (4.00-6.00); RDW-CV 13.6 % (11.9-14.6); WBC 7.7 K/uL (4.0-11.0)
[2016-11-26 16:41] LABS: ALBUMIN 3.4 gm/dL (3.5-5.0); ALK PHOS 96 IU/L (33-138); ALT 20 IU/L (12-78); ANION GAP 13.2 (10.0-19.0); AST 21 IU/L (10-40); BLOOD UREA NITROGEN 14 mg/dL (6-24); CALCIUM 8.9 mg/dL (8.5-10.5); CHLORIDE 106 mMol/L (96-110); CO2 23 mMol/L (22-32); CREATININE 0.8 mg/dL (0.6-1.3); ESTIMATED GFR (MDRD EQUATION) > 60; POTASSIUM 4.2 mMol/L (3.7-5.1); SODIUM 138 mMol/L (135-145); TOTAL PROTEIN 7.3 g/dL (6.0-8.4)
[2016-11-26 16:49] LABS: TOTAL BILIRUBIN 0.7 mg/dL (0.0-1.5)
== END 2016-11-26 17:28 | disposition disaster alternative care site (69) ==
LOC: GMED 15:15
PROVIDERS: Physician Assistant Medical
DX: R11.2 Nausea with vomiting, unspecified (principal); G89.29 Other chronic pain; J44.9 Chronic obstructive pulmonary disease, unspecified; I45.6 Pre-excitation syndrome; M46.40 Discitis, unspecified, site unspecified; I10 Essential (primary) hypertension; M19.90 Unspecified osteoarthritis, unspecified site; M06.9 Rheumatoid arthritis, unspecified; F17.210 Nicotine dependence, cigarettes, uncomplicated; Z79.2 Long term (current) use of antibiotics; Z98.890 Other specified postprocedural states; Z79.899 Other long term (current) drug therapy
CPT/HCPCS: J1170; J2405; J7030

== ENCOUNTER → 2017-01-03 | Outpatient (CLI) | payer OTHER ==
[~2017-01-03] MED LIST changes: +CUBICIN (NON-F500 MG IV; +DELTASONE2.5 MG PO; +ELAVIL25 MG PO; +LYRICA 150MG C150 MG PO; +OXYMORPHONE HCL30 MG PO; +OXYMORPHONE HCL5 MG PO; +SPIRIVA HA30 CAP/INH PO
[2017-01-03 09:53] LABS: CREATININE 0.9 mg/dL (0.6-1.3); ESTIMATED GFR (MDRD EQUATION) > 60
== END | disposition disaster alternative care site (69) ==
LOC: GLAB 09:00 → GRAD 10:00
PROVIDERS: Neurological Surgery
DX: Z09 Encounter for follow-up examination after completed treatment for conditions other than malignant neoplasm (principal); Z87.39 Personal history of other diseases of the musculoskeletal system and connective tissue; M47.897 Other spondylosis, lumbosacral region
CPT/HCPCS: A9577

== ENCOUNTER 2017-01-24 15:32 | Inpatient (IN) | payer MEDICAID ==
[~2017-01-24] VITALS: Ht 172.7 cm; Wt 54.5 kg
--- NOTE | ~2017-01-24 | OR ---
PATIENT'S NAME: ANA RICHARDS [facility] AGE: 56 Y [address] ROOM: [address] [address] LOCATION: [facility] ADMIT DATE: 01/24/2017 OR/Procedure Report DISCHARGE DATE: FAMILY PHYSICIAN: Alfredo Tyler MD ATTENDING PHYSICIAN: ANA AVLENCIA SURGEON: Ana Valencia MD FOOT ROENTGENOLOGIST: DATE OF PROCEDURE: 01/24/2017 ANESTHESIA: General. COMPLICATIONS: None. ESTIMATED BLOOD LOSS: Less than 100 mL. PREOPERATIVE DIAGNOSES: 1. Recurrent L5-S1 diskitis and osteomyelitis with severe back pain. 2. Severe right L5 foraminal stenosis with severe right L5 radiculopathy. POSTOPERATIVE DIAGNOSES: 1. Recurrent L5-S1 diskitis and osteomyelitis with severe back pain. 2. Severe right L5 foraminal stenosis with severe right L5 radiculopathy. PROCEDURE PERFORMED: 1. L5-S1 diskectomy/debridement for L5-S1 diskitis and osteomyelitis. 2. Right L5 foraminotomy. 3. L5-S1 posterolateral noninstrumented arthrodesis. 4. Intraoperative fluoroscopy and interpretation. 5. Insertion of autograft bone posterolaterally from L5-S1 for posterolateral arthrodesis. CLINICAL HISTORY: The patient is a 56-year-old male patient, who was diagnosed with diskitis and osteomyelitis at L5-S1 level back in August 2016. The patient underwent percutaneous aspiration and cultures were positive for Staph epi. The patient was treated with intravenous and oral antibiotics and followed in the office by me and Infectious Disease. His repeat imaging showed improvement in the inflammation at L5-S1 level. He was subsequently discharged from Infectious Disease. Over the past week, the patient has been complaining of increasing low back pain, fever, chills. His investigation showed elevated ESR and WBC. I saw the patient in my office today and his CRP was elevated at 9.5. He had urgent lumbar spine MRI without and with contrast and that showed increased enhancement in L5, S1 vertebral body and increased prevertebral soft tissue swelling. The patient was admitted to the hospital. The patient was also complaining of severe right leg pain in L5 distribution. The imaging showed evidence of severe right L5 PATIENT'S NAME: ANA RICHARDS [facility] AGE: 56 Y [address] ROOM: [id number] [place] [id number] LOCATION: [facility] ADMIT DATE: 01/24/2017 OR/Procedure Report DISCHARGE DATE: FAMILY PHYSICIAN: Alfredo Tyler MD ATTENDING PHYSICIAN: ANA VALENCIA foraminal stenosis. I recommended the above mentioned surgery to the patient and his . I discussed the procedure itself, the benefits, and all the risks associated with it. The patient was interested in proceeding, so he was taken urgently for surgery. DESCRIPTION OF PROCEDURE: The patient was brought to the operating room, where he was given general anesthetic, and underwent endotracheal intubation without complications. Preoperative antibiotics were not given. Calf compressors were used throughout the procedure. The patient was then turned to prone position on a gel padded Johnny table and all his joints and bony prominences were securely padded. The lumbar region was exposed. The surgical site was then prepped and draped as per usual. I started by marking a midline incision starting at L5 down to S1 spinous process. That incision was infiltrated with 0.25% Marcaine with epinephrine. The skin was sharply opened down to the subcutaneous tissue, then using a monopolar cautery, the posterior elements of L5 and S1 were exposed bilaterally. The L5-S1 facet joint was also exposed bilaterally. The correct level was then confirmed using intraoperative fluoroscopy. I started by performing the right L5 foraminotomy. Using an osteotome, I partially removed the right L5 inferior facet. Then, I completed the facetectomy using Kerrison rongeur. Using a high-speed Midas Andrew drill, the inferior projecting osteophytes from L5 facet and the superior projecting osteophytes from S1 joint were removed down to the intertransverse and yellow ligament. Then, using Kerrison rongeur, those osteophytes were completely removed. I also did right L5 hemilaminectomy and the yellow ligament was exposed. Then, using Kerrison rongeur, the yellow ligament and the intertransverse ligament were removed. There was severe right L5 foraminal stenosis and inflammation in the right L5 exiting nerve root. The right L5 nerve root was completely decompressed. Then, I turned my attention to perform the L5-S1 diskectomy. The L5-S1 annulus was exposed. There was posterior bulging disk at L5-S1 level that was causing moderate to severe compression on the thecal sac. The annulus was coagulated and incised. Then, using curette and pituitary rongeur, I did L5- S1 diskectomy and all the disk samples were sent out for microbiological analysis. The L5, S1 endplates were decorticated. I had no complications during that. The thecal sac was decompressed. Then, I turned my attention to perform the posterolateral noninstrumented arthrodesis. The left L5-S1 facet joint was decorticated using an osteotome and high-speed Midas Andrew drill. The left L5 lamina was also decorticated as well as the S1 lamina. Then, the wound was copiously irrigated with bacitracin-containing irrigation. Just to mention, that the patient received PATIENT'S NAME: ANA RICHARDS [facility] AGE: 56 Y [address] ROOM: [address] [address] LOCATION: [facility] ADMIT DATE: 01/24/2017 OR/Procedure Report DISCHARGE DATE: FAMILY PHYSICIAN: Alfredo Tyler MD ATTENDING PHYSICIAN: ANA VALENCIA a dose of vancomycin after the L5-S1 disk material were sent out for cultures. I then achieved hemostasis using a bipolar cautery. Then, I proceeded to closure. A 1/8 Hemovac drain was inserted, tunneled, and secured to the skin with 3-0 Prolene. The exposed right L5 nerve root as well as the dura were covered with Gelfoam. The wound was then closed in layers with #1 Vicryl to the paraspinal muscles, #1 Vicryl to the lumbar fascia, 2-0 Vicryl to the subcutaneous tissue, and deyvi for the skin. Sterile dressing was applied. At the end of the operation, the instrument and sponge counts were correct. The patient tolerated the operation without any complications. MD SALEEM LAWLER/marcie /[id number] CC: MD Alfredo Jones MD d: 01/25/17 0223 t: 01/27/17 1436, OPERATIVE SUMMARY
--- NOTE | ~2017-01-24 | CON ---
PATIENT'S NAME: ANA RICHARDS [facility] AGE: 56 Y [address] ROOM: [id number] [place], [place] [address] LOCATION: [facility] ADMIT DATE: 01/24/2017 Consultation DISCHARGE DATE: FAMILY PHYSICIAN: Alfredo Tyler MD ATTENDING PHYSICIAN: YANNI VALENCIA REFERRING PHYSICIAN: Mario Maria MD CHIEF COMPLAINT: Recurrent diskitis/osteomyelitis of the L5-S1 region. CONSULTED BY: Dr. Valencia. HISTORY OF PRESENT ILLNESS: The patient is a 56-year-old patient normally sees Dr. Alfredo Tyler. He has a known history of COPD, smoking dependence, rheumatoid arthritis, for which she is on chronic steroids, and a history of diskitis/osteomyelitis back in August. He had an aspiration at that time. He was on long-term antibiotics that was guided by Infectious Disease. He ended up growing out Staph epi at that time. The risk factors were thought to be due to his immunosuppression from his RA drugs along with his chronic steroids. The patient was doing relatively well then he started to have recurrence of his back pain approximately a week to 10 days ago. Last week, it seemed to get progressively worse and when he woke up on Friday01/20/2017 he could barely even walk. He saw Dr. Tyler, who did recurrent lab work, got him in to see Dr. Valencia, who saw him on Friday the . We helped out with getting an MRI down at [facility] as Hong Denis's MRI was down. It did show signs of recurrence of his diskitis/osteomyelitis. His CRP was elevated. Dr. Valencia then took him to surgery on 01/24/2017 and performed an L5-S1 diskectomy with a right L5 foraminotomy and L5-S1 posterior lateral non-instrumented fusion. The patient has actually been doing pretty well since the surgery. Dr. Valencia already had ordered tapering of his steroids. He had hydrocortisone 50 mg IV every 8 hours for 24 hours, then he ordered prednisone 10 mg daily for couple a days then 5 mg daily for three days, then 2.5 daily, and then stop after that. The patient's main complaints today are that of difficulty with urinating. He has previously been on tamsulosin for this, but he has been off it for a while, now seems to be having problems again. He, of course, does have the back pain, but it does sound like his right radiculopathy is markedly better. He also complains of constipation and difficulty sleeping. ALLERGIES: NONE KNOWN. CURRENT MEDICATIONS: 1. Carvedilol 25 mg b.i.d. 2. Amlodipine 5 mg daily. PATIENT'S NAME: ANA RICHARDS [facility] AGE: 56 Y [address] ROOM: [address] [address] LOCATION: [facility] ADMIT DATE: 01/24/2017 Consultation DISCHARGE DATE: FAMILY PHYSICIAN: Alfredo Tyler MD ATTENDING PHYSICIAN: YANNI VALENCIA 3. Gabapentin 100 mg p.o. t.i.d. 4. Oxycodone 5 mg q.6 hours p.r.n. 5. OxyContin extended release 20 mg twice daily. 6. Prednisone 10 mg, three of them daily, so total of 30 mg daily. 7. Spiriva 1 inhalation daily. 8. He was on leflunomide 20 mg half tab daily. 9. Zolpidem 10 mg at bedtime. CHRONIC HEALTH PROBLEMS: History of COPD, hypertension, rheumatoid arthritis, WPW, and history of L5-S1 diskitis, and osteomyelitis treated with an extended course of antibiotics back in August. PREVIOUS SURGERIES: He has had a previous open heart surgery for his WPW. SOCIAL HISTORY: The patient was a heavy drinker, but quit 07/13/2016. He denies drug use. He does smoke 1 to 1-1/2 packs per day. He has been for 4 years. This is a subsequent marriage. He used to work for [employer], but has been disabled since August of 2016 due to that diskitis. FAMILY HISTORY: The patient's mother has a history of COPD and hypertension. Dad has a history of hypertension, and rheumatoid arthritis. The patient has one child, who developed juvenile-onset diabetes at age 17 and a history of a son with testicular cancer. The patient has a sister with history of hypertension and there was a paternal grandfather with history of hypertension, rheumatoid arthritis, and his dad had the history of hypertension and rheumatoid arthritis. His paternal grandfather also of an MD. REVIEW OF SYSTEMS: HEENT: Negative. LUNGS: Negative. States that his breathing is currently stable. Prior to being admitted though he stated that he had increased his Spiriva up to twice daily. GASTROINTESTINAL: He does have a known history of reflux. He also has been fairly constipated since the surgery. GENITOURINARY: He is having difficulty urinating. PHYSICAL EXAMINATION: GENERAL: Shows a thin male who is resting comfortably in his recliner at this time. HEENT: Normal. NECK: Supple. No adenopathy. LUNGS: Showed diminished breath sounds throughout. PATIENT'S NAME: ANA RICHARDS [facility] AGE: 56 Y [address] ROOM: [address] [address] LOCATION: [facility] ADMIT DATE: 01/24/2017 Consultation DISCHARGE DATE: FAMILY PHYSICIAN: Alfredo Tyler MD ATTENDING PHYSICIAN: YANNI VALENCIA HEART: Regular rate and rhythm. ABDOMEN: Bowel sounds are positive. Some mild distention, but no tenderness or guarding. EXTREMITIES: No cyanosis, clubbing, or edema. LABORATORY DATA: The patient actually has not had any recent lab work. I think his last test was a CBC. White count was 9.4, hemoglobin 11.8, hematocrit 34, platelet count 204. ASSESSMENT: 1. Recurrent diskitis/osteomyelitis involving L5-S1, now status post L5-S1 diskectomy, right L5 foraminotomy, and L5-S1 posterior lateral non- instrumented fusion. 2. Rheumatoid arthritis with chronic steroid dependence. 3. Chronic steroid dependence. 4. Hypertension. 5. History of Reeou-Bsheysgfq-Fjpbt. 6. Constipation. 7. History of BPH in the past with urinary difficulties. 8. Chronic obstructive pulmonary disease, currently stable. PLAN: I originally had written for a prednisone taper, but I see that Dr. Valencia had already done that. I will get the patient started on Flomax and we will restart his Ambien. We will place the patient on Dr. Alfredo Tyler's census. The patient is currently on daptomycin IV. ID is already consulted and will see the patient when available. The patient does have a good bowel regimen already ordered, so we just encouraged him to follow up with the nurse about that. NATALIA JAVON, MD GOMEZ/marcie /[id number] d: 01/26/175 t: 01/29/17 1353, CONSULTATION REPORT
--- NOTE | ~2017-01-24 | HP ---
PATIENT'S NAME: ANA RICHARDS [facility] AGE: 56 Y [address] ROOM: [address] [place], [place] [address] LOCATION: [facility] ADMIT DATE: 01/24/2017 History & Physical DISCHARGE DATE: FAMILY PHYSICIAN: Alfredo Tyler MD ATTENDING PHYSICIAN: YANNI REILLY DATE OF SERVICE:01/24/2017 ADMISSION MAIN DIAGNOSIS: Recurrent L5-S1 diskitis, osteomyelitis. HISTORY OF PRESENT ILLNESS: Full office consultation was dictated on this patient on the day of admission. Please refer to that note for more information. Essentially, this patient was admitted to the hospital in August 2016 with the main diagnosis of L5-S1 diskitis, osteomyelitis. The patient had a percutaneous aspiration of the L5- S1 disk and that was positive for coagulase-negative staphylococcus. The patient was treated with intravenous antibiotics followed by oral antibiotics with successful resolution of the L5-S1 diskitis. He was followed by me in the office and he was last seen in December with a repeat lumbar spine MRI and that showed significant decrease of the L5-S1 vertebral body inflammation. The patient's low back pain was also improving. His CRP was slightly elevated. Over the past week, the patient has been complaining of increasing low back pain, fever, and chills. He was initially seen by his family physician, and ESR and CBC were ordered. Those showed elevated WBC and ESR. I saw the patient in the office today. He was in iplpnsok-[id number]-pbiswk pain. He also confirmed the fever, chills. PHYSICAL EXAMINATION: GENERAL APPEARANCE: The patient is in severe pain. He is alert and oriented. He is mobilizing with difficulty. He has difficulties doing the toe and heel walking. MUSCULOSKELETAL: His lumbar spine range of motion is severely limited. Motor examination in the lower extremities shows no weakness of the ankle dorsiflexion, but mild weakness of the EHL muscle bilaterally. INVESTIGATION: 1. CRP which was 9.5 (elevated). 2. Lumbar spine MRI done today without and with contrast. I personally reviewed that and discussed it with the radiologist. It showed evidence of recurrent L5-S1 diskitis with increased enhancement and perivertebral soft tissue swelling around the L5-S1 disk. The imaging findings are very highly suspicious for recurrent L5-S1 diskitis. PLAN: PATIENT'S NAME: ANA RICHARDS [facility] AGE: 56 Y [address] ROOM: [facility] [place] [place], [place] [address] LOCATION: [facility] ADMIT DATE: 01/24/2017 History & Physical DISCHARGE DATE: FAMILY PHYSICIAN: Alfredo Tyler MD ATTENDING PHYSICIAN: YANNI REILLY 1. Admission to the hospital. 2. L5-S1 diskectomy and debridement, right L5 foraminotomy, and L5-S1 posterolateral non-instrumented fusion. The patient will be taken to surgery urgently. 3. Postoperatively, the patient will be started on broad-spectrum antibiotics. 4. Infectious Disease consultation. 5. Pain management. 6. PICC insertion for long-term antibiotic treatment. 7. Hold prednisone and leflunomide postoperatively. I discussed the imaging findings with the patient and his . I clearly indicated that the MRI showed signs of recurrent L5-S1 diskitis. I recommended the above-mentioned surgery to the patient to be done urgently. I discussed the procedure itself, the benefits, and all the risks associated with it especially the increased risk of wound infection given the existing L5-S1 diskitis and the immunosuppression from the prednisone and the leflunomide. The patient and his asked appropriate questions and those were answered to their satisfaction. The patient is interested in proceeding with surgery so he will be taken to surgery today. It was a pleasure taking care of this patient and thanks for having us involved. MD SALEEM LAWLER/modl /[id number] CC: MD Alfredo Jones MD D: [id number] T: [id number] HISTORY & PHYSICAL
--- NOTE | ~2017-01-24 | DS ---
PATIENT'S NAME: ANA RICHARDS [facility] AGE: 56 Y [address] ROOM: [address] [place], [place] [address] LOCATION: [facility] ADMIT DATE: 01/24/2017 Discharge Summary DISCHARGE DATE: 01/31/2017 FAMILY PHYSICIAN: Alfredo Tyler MD ATTENDING PHYSICIAN: Ana Valencia ADMISSION MAIN DIAGNOSES: 1. L5-S1 recurrent diskitis and osteomyelitis, elevated CRP. 2. L5-S1 degenerative joint disease, facet arthropathy with mechanical low back pain. 3. Severe right L5 foraminal stenosis with severe right L5 radiculopathy. DISCHARGE MAIN DIAGNOSES: 1. L5-S1 recurrent diskitis and osteomyelitis, elevated CRP. 2. L5-S1 degenerative joint disease, facet arthropathy with mechanical low back pain. 3. Severe right L5 foraminal stenosis with severe right L5 radiculopathy. PROCEDURES DURING ADMISSION: 1. L5-S1 diskectomy, debridement. 2. Right L5 foraminotomy and decompression of right L5 nerve root. 3. L5-S1 posterolateral non-instrumented fusion. COMPLICATIONS DURING ADMISSION: None. DISCHARGE INSTRUCTIONS AND FOLLOWUP APPOINTMENTS: 1. Myself on February 07, 2017, for staple removal. 2. Infectious Disease on February 06, 2017, at 10:00 a.m. The patient requires repeat CRP prior to that appointment. 3. Corset brace when mobilizing. 4. Call my office for any issues regarding the wound healing or for any new neurologic symptoms. 5. No heavy lifting, no back twisting, no forward bending. MEDICATIONS ON DISCHARGE: 1. Daptomycin 350 mg IV every day. Stop date is February 07, 2017. 2. Amitriptyline 25 mg p.o. at bedtime. 3. Norvasc 5 mg p.o. once daily. 4. Oxymorphone ER 30 mg p.o. b.i.d. 5. Oxymorphone 5 mg p.o. every 6 hours as needed. 6. Prednisone 2.5 mg p.o. for 5 days, then p.o. once daily for 5 days and then stop. 7. Lyrica 150 mg p.o. b.i.d. 8. Spiriva HandiHaler 1 vial inhaler twice daily. 9. Flexeril 10 mg p.o. q.8 hours p.r.n. PATIENT'S NAME: ANA RICHARDS [facility] AGE: 56 Y [address] ROOM: [address] [place], [place] [address] LOCATION: [facility] ADMIT DATE: 01/24/2017 Discharge Summary DISCHARGE DATE: 01/31/2017 FAMILY PHYSICIAN: Alfredo Tyler MD [facility] COURSE: The patient is a 56-year-old male patient, who was initially admitted to the hospital in August 2016 with the main diagnosis of L5-S1 diskitis, osteomyelitis. He underwent percutaneous aspiration of L5-S1 disk by Interventional Radiology and culture was positive for Staphylococcus epidermidis. The patient was treated accordingly with intravenous, then oral antibiotics. He recovered very well. A week prior to this admission, the patient started complaining of increasing low back pain, fever, and chills. He was investigated by his family physician and the ESR was elevated. I saw the patient in my office and did urgent MRI of the lumbar spine and that showed signs suspicious for recurrent L5-S1 diskitis. His CRP was also checked and it was 9.5. The patient was urgently admitted to the hospital and underwent the above-mentioned surgery without any complications. Postoperatively, the patient did very well. He had no new neurological deficits. His back pain improved postoperatively. Severe preoperative right L5 radiculopathy also improved. The intraoperative cultures remained negative for infection. The patient was started on IV daptomycin postoperatively. The patient then started complaining of increasing mechanical low back pain and mild right leg pain. He was seen by Dr. Jones, and he was started on amitriptyline and Lyrica. Gabapentin was discontinued. The patient's pain improved significantly afterward. On the day of discharge, I examined the patient. He continued to do well. His incision was healing very well. Neurologically, he was stable with no new neurologic deficits. The intraoperative L5-S1 disk cultures remained negative. CRP was rechecked by Family Practice and it was noticed to be elevated at 13.8. I discussed the situation with the patient and his family physician. I clearly indicated that given the previous history of L5-S1 diskitis, I recommended continuing the intravenous antibiotics until he sees Infectious Disease. With regard to elevated CRP, that could be related to surgery itself, or the rheumatoid arthritis. Clinically, the patient was much better than preoperatively. I discussed all those issues with the patient. I found the patient to be stable for discharge today. Given that, he was sent home today. MD SALEEM LAWLER/nisal /[id number] PATIENT'S NAME: ANA RICHARDS [facility] AGE: 56 Y [address] ROOM: [place] [address] LOCATION: [facility] ADMIT DATE: 01/24/2017 Discharge Summary DISCHARGE DATE: 01/31/2017 FAMILY PHYSICIAN: Alfredo Tyler MD ATTENDING PHYSICIAN: Ana Valencia CC: Alfredo Tyler MD d: 02/01/17 0520 t: 02/02/17 1605, DISCHARGE SUMMARY
--- NOTE | ~2017-01-24 | CON ---
PATIENT'S NAME: ANA RICHARDS [facility] AGE: 56 Y [address] ROOM: [address] [place], [place] [address] LOCATION: G3 ADMIT DATE: 01/24/2017 Consultation DISCHARGE DATE: FAMILY PHYSICIAN: Alfredo Tyler MD ATTENDING PHYSICIAN: YANNI REILLY DATE OF CONSULTATION: 01/24/2017 REFERRING PHYSICIAN: Mario Maria MD REASON FOR CONSULTATION: Intractable pain with radiation into both lower extremities. HISTORY OF PRESENT ILLNESS: Ana has a history of osteomyelitis affecting his lumbar spine. He recently had elevated white count and uncontrolled infection, was admitted and emergently had spine surgery to remove the infected bone tissue. Ever since the surgery, he has had severe low back pain with radiation down the back of both lower extremities that he describes as burning. The pain is a 10/10. He is currently being treated with OxyContin 30 mg b.i.d. In addition to this, he is receiving oxycodone immediate release every 4 hours 10 mg. He is on gabapentin and it was recently increased to 300 mg three times a day. PHYSICAL EXAMINATION: GENERAL: Reveals a white male patient who is fairly cachectic. He is in mild- to-moderate distress. He is able to move extremities. LUNGS: Does not have any respiratory distress. EXTREMITIES: Cranial nerves 2 through 12 are grossly intact. IMPRESSION: Patient with lumbar radiculopathy and uncontrolled pain. PLAN: I recommended changing him from gabapentin to Lyrica 150 mg b.i.d. I also recommended placing him on amitriptyline 25 mg at bedtime to see if this would help with his radicular pain complaints. He may ultimately benefit from spinal cord stimulator trial, but he has to recover from his surgery and demonstrate resolution of his osteomyelitis before consideration of this intervention. I spent 10 minutes in direct patient contact discussing his pain and treatment options. PATIENT'S NAME: ANA RICHARDS [facility] AGE: 56 Y [address] ROOM: [facility] [place] [place], [place] [address] LOCATION: [facility] ADMIT DATE: 01/24/2017 Consultation DISCHARGE DATE: FAMILY PHYSICIAN: Alfredo Tyler MD ATTENDING PHYSICIAN: YANNI REILLY MD BM/modl /[id number] d: 01/29/17 0005 t: 02/10/17 1521, CONSULTATION REPORT
[~2017-01-24 15:32] MED LIST changes: -CUBICIN (NON-F500 MG IV; -DELTASONE2.5 MG PO; -ELAVIL25 MG PO; -LYRICA 150MG C150 MG PO; -OXYMORPHONE HCL30 MG PO; -OXYMORPHONE HCL5 MG PO; -SPIRIVA HA30 CAP/INH PO
[2017-01-24] MEDS ORDERED: OXYMORPHONE HCL5 MG PO (16:44)
[2017-01-24] MEDS ORDERED: OXYMORPHONE HCL30 MG PO (16:44)
[2017-01-24 17:02] LABS: BASOPHIL % 0.3 %; EOSINOPHIL # 0.4 K/uL (0.0-0.5); EOSINOPHIL % 6.8 %; HEMATOCRIT 43.6 % (37.0-53.0); HEMOGLOBIN 15.4 g/dL (12.0-17.0); IMMATURE GRANULOCYTE % 0.3 %; LYMPHOCYTE # 1.3 K/uL (0.8-4.0); LYMPHOCYTE % 19.6 %; MCH 32.3 pg (27.0-34.0); MCHC 35.3 gm/dL (32.0-36.5); MCV 91.4 fl (83.0-98.0); MONOCYTE # 0.8 K/uL (0.0-1.0); MONOCYTE % 13.2 %; NEUTROPHIL # (ANC) 3.8 K/uL (1.4-9.0); NEUTROPHIL % 59.8 %; NRBC % 0 /100WBC (0-0.00); PLATELET COUNT 245 K/uL (150-450); RBC 4.77 M/uL (4.00-6.00); RDW-CV 13.4 % (11.9-14.6); WBC 6.4 K/uL (4.0-11.0)
[2017-01-24 17:15] LABS: INR - (THERAPEUTIC) 0.95 (0.92-1.07)
[2017-01-24 17:21] LABS: ALBUMIN 3.4 gm/dL (3.5-5.0); ALK PHOS 90 IU/L (33-138); ALT 21 IU/L (12-78); ANION GAP 10.8 (10.0-19.0); AST 28 IU/L (10-40); BLOOD UREA NITROGEN 13 mg/dL (6-24); CALCIUM 9.2 mg/dL (8.5-10.5); CHLORIDE 101 mMol/L (96-110); CO2 30 mMol/L (22-32); CREATININE 0.9 mg/dL (0.6-1.3); POTASSIUM 3.8 mMol/L (3.7-5.1); SODIUM 138 mMol/L (135-145); TOTAL BILIRUBIN 0.6 mg/dL (0.0-1.5); TOTAL PROTEIN 7.4 g/dL (6.0-8.4)
--- NOTE | 2017-01-25 05:25 | NUR ---
Pt here from PACU at 2134. Pt had an infection in his back in June, and last week his low back pain kept getting worse. Dr. Valencia did Discectomy L5-S1 and Foramiotomy of L5-S1. There was some infection that Dr. Valencia cleaned out. Calderon has been here and brought Corset brace. Pt is to have on when up. Order to wait until this morning to get him up out of bed. Pt has Hemovac and had 50 cc out of that. Nicotine patch on L shoulder. Pt on Daptomycin. Heart hx. Had irritation of left eye, artificial tears for that have helped. Shadowing on dressing-marked. Dilaudid cigarette machine filler 38 attempts and 33 deliveries for a 6.45mg total. pt on scheduled oxycontin. Pt needs reminded not to twist back.
[2017-01-25 05:33] LABS: HEMATOCRIT 37.4 % (37.0-53.0); HEMOGLOBIN 12.5 g/dL (12.0-17.0); MCHC 33.4 gm/dL (32.0-36.5); MCV 92.8 fl (83.0-98.0); MPV 9.2 fl (9.4-12.4); RBC 4.03 M/uL (4.00-6.00); RDW-CV 13.4 % (11.9-14.6); WBC 7.1 K/uL (4.0-11.0)
--- NOTE | 2017-01-25 05:34 | NUR ---
Pt informed on not to bend twist pull and heavy lifting. Pt caught repositioning self in bed. Pt informed to not bend and twist.
--- NOTE | 2017-01-25 16:39 | NUR ---
Significant Event: FOLDING MACHINE TENDER stopped at 1220. Oxycontin IR 5mg x 2 last at 1442. Flexeril 10mg at 1554. Dressing intact to back with moderate amount shadow drainage. 60ml out of hemavac. Brace on when OOB. Follow up:
--- NOTE | 2017-01-26 02:15 | NUR ---
Significant Event: PATIENT ALERT AND ORIENTED X 3. VSS. TAKING PO AND VOIDING WITHOUT DIFFICULTY. UP WITH 1 ASSIST, GB AND WALKER. HEMOVAC INTACT TO LOWER BACK. ISLAND DRESSING HAS OLD SHADOW DRAINAGE PRESENT - NO NEW DRAINAGE PRESENT. PAIN WELL CONTROLLED WITH OXYCONTIN ER, ROXYCODONE LAST AT 0500 AND FLEXERIL LAST AT 0005. BRACE ON WHEN UP. PLAN FOR PICC LINE PLACEMENT AND ID CONSULT ON FRIDAY. PLEASANT AND COOPERTIVE WITH CARES. Follow up:
[2017-01-26 05:16] LABS: HEMOGLOBIN 11.8 g/dL (12.0-17.0); MCH 31.8 pg (27.0-34.0); MCHC 34.7 gm/dL (32.0-36.5); MCV 91.6 fl (83.0-98.0); MPV 9.1 fl (9.4-12.4); RBC 3.71 M/uL (4.00-6.00); RDW-CV 13.2 % (11.9-14.6); WBC 9.4 K/uL (4.0-11.0)
--- NOTE | 2017-01-26 17:06 | NUR ---
Significant Event: Dressing changed and hemovac removed by med. Small amount of draiange to dressing. CSM WNL. Back brace on when OOB. Oxycontin IR x4 last at 1631. Starting on flomax this pm Follow up:
--- NOTE | 2017-01-27 03:22 | NUR ---
Significant Event: PATIENT ALERT AND ORIENTED X 3. VSS. TAKING PO AND VOIDING WITHOUT DIFFICULTY. UP WITH 1 ASSIST/GB/WALKER. CSM'S WNL. DRESSING TO BACK HAS LARGE AMOUNT OF SEROSANG DRAINAGE ON ISLAND BARRIER TO DRAIN SITE. ISLAN BARRIER TO INCISION C/D/I - DID HAVE TO REPACE DRESSINGS LAST NOC D/T DRESSING ROLLING UP. PAIN CONTROLLED WITH OXYCONTIN ER AT 2000 AND ROXYCODONE - WILL PLAN TO GIVE AGAIN AT 0500. SL TO RIGHT ANTERIOR FA PATENT. PLEASANT AND COOPERTIVE WITH CARES. PLAN FOR ID CONSULT AND PIFF PLACEMENT TODAY. Follow up:
[2017-01-27 04:33] LABS: BASOPHIL % 0.2 %; EOSINOPHIL # 0.2 K/uL (0.0-0.5); EOSINOPHIL % 1.8 %; HEMATOCRIT 37.6 % (37.0-53.0); HEMOGLOBIN 12.6 g/dL (12.0-17.0); IMMATURE GRANULOCYTE % 0.3 %; LYMPHOCYTE # 1.6 K/uL (0.8-4.0); LYMPHOCYTE % 16.5 %; MCH 30.7 pg (27.0-34.0); MCHC 33.5 gm/dL (32.0-36.5); MCV 91.5 fl (83.0-98.0); MONOCYTE # 1.2 K/uL (0.0-1.0); MONOCYTE % 12.4 %; NEUTROPHIL # (ANC) 6.7 K/uL (1.4-9.0); NEUTROPHIL % 68.8 %; NRBC % 0 /100WBC (0-0.00); PLATELET COUNT 230 K/uL (150-450); RBC 4.11 M/uL (4.00-6.00); RDW-CV 13.4 % (11.9-14.6); WBC 9.8 K/uL (4.0-11.0)
[2017-01-27 04:48] LABS: ANION GAP 6.6 (10.0-19.0); BLOOD UREA NITROGEN 10 mg/dL (6-24); CALCIUM 8.3 mg/dL (8.5-10.5); CHLORIDE 100 mMol/L (96-110); CO2 33 mMol/L (22-32); CREATININE 0.8 mg/dL (0.6-1.3); POTASSIUM 3.6 mMol/L (3.7-5.1); SODIUM 136 mMol/L (135-145)
--- NOTE | 2017-01-27 11:42 | NUR ---
PT BROUGHT DOWN TO [facility] 1056 FOR PLANNED PICC LINE INSERTION. UPON TALKING W/ PT HE STATED THAT HE "FELT CHILLED." UPON TAKING HIS TEMP, IT WAS FOUND TO BE 100.[address] REILLY NOTIFIED AND ORDER RECEIVED TO CANCEL PICC LINE INSERTION FOR NOW AND OBTAIN BLOOD CULTURES X2. NEW 20G PIV STARTED TO L) WRIST D/T NO CURRENT IV ACCESS ON ARRIVAL. PT'S PRIMARY NURSE LALO CALLED ON 3N AND UPDATED ON SITUATION. VASCULAR ACCESS TEAM WILL WAIT FOR NEW ORDER FROM DR. REILLY FOR PICC PLACEMENT.
--- NOTE | 2017-01-27 15:51 | NUR ---
PATIENT AMBULATED IN [place] AND TO , SAT IN RECLINER FOR SHORT PERIODS. OXYCONTIN ER AT 0900, ROXICONTIN LAST AT 1400. DRESSING CHANGED BY DR. REILLY FOR SERO YOBANI ORTIZ. [facility] D/I.UNABLE TO PLACE PICC LINE TODAY PATIENT HAD FEVER OF 100.3 IN [facility], BLOOD CULTURES DRAWN AND SALINE LOC STARTED. 99.1 THIS AFTERNOON. ENCOURAGED PATIENT TO USE IS HOURLY. CSM ADEQUATE. NICOTINE PATCH INTACT. UP WITH 1 ASSIST AND BRACE, ABLE TO SIT IN CHAIR WITHOUT BRACE. EYES DRY, DROPS AT BEDSIDE.
--- NOTE | 2017-01-28 04:58 | NUR ---
Significant Event: Pt A&Ox3. VS stable, remains on RA and afebrile overnight. LS clear, RML/LLL/RLL slightly coarse, but clears with cough. Encourage IS and TCDB. Encourage ambulation and up to chair. Has c/o burning pain down both legs throughout shift. Have been giving 5mg dajuan at a time. Tried flexeril with no relief. Emilia oxycontin. Up with 1PA and brace, may remain in chair w/o brace. Dressing remains C/D/I. No c/o nausea on shift. LW, SL; Dapto qday. Follow up: Continue plan of care.
[2017-01-28 05:32] LABS: BASOPHIL % 0.1 %; EOSINOPHIL # 0.1 K/uL (0.0-0.5); EOSINOPHIL % 1.2 %; HEMATOCRIT 37.3 % (37.0-53.0); IMMATURE GRANULOCYTE % 0.3 %; LYMPHOCYTE # 1.5 K/uL (0.8-4.0); LYMPHOCYTE % 14.1 %; MCH 31.6 pg (27.0-34.0); MCHC 34.9 gm/dL (32.0-36.5); MCV 90.8 fl (83.0-98.0); MONOCYTE # 1.4 K/uL (0.0-1.0); MPV 9.2 fl (9.4-12.4); NEUTROPHIL # (ANC) 7.6 K/uL (1.4-9.0); NEUTROPHIL % 71.3 %; NRBC % 0 /100WBC (0-0.00); PLATELET COUNT 234 K/uL (150-450); RBC 4.11 M/uL (4.00-6.00); RDW-CV 13.3 % (11.9-14.6); WBC 10.6 K/uL (4.0-11.0)
[2017-01-28 05:45] LABS: ANION GAP 9.6 (10.0-19.0); BLOOD UREA NITROGEN 13 mg/dL (6-24); CALCIUM 8.5 mg/dL (8.5-10.5); CHLORIDE 98 mMol/L (96-110); CO2 30 mMol/L (22-32); CREATININE 0.7 mg/dL (0.6-1.3); POTASSIUM 3.6 mMol/L (3.7-5.1); SODIUM 134 mMol/L (135-145)
--- NOTE | 2017-01-28 10:41 | NUR ---
SPOKE TO PATIENT REGARDING CM AND OUR ROLE. PATIENT LIVES IN OWN HOME WITH SPOUSE, HE TELLS ME THAT HIS IS PLANNING ON RETURNING HOME ONCE HE IS READY FOR DISCHARGE AND HE WANTS TO HAVE HOME INFUSION. HE REPORTS THAT HE HAS HAD HOME INFUSION IN THE PAST WITH [facility] AND WOULD LIKE TO HAVE THEM AGAIN. WILL CONT TO FOLLOW NEEDED.
--- NOTE | 2017-01-28 14:25 | NUR ---
A-NUTRITION F/U LABS: NA 134, K+ 3.6,G MILA 98, BUN 13, CLINICAL CYTOGENETICIST SCIENTIST 0.7. 01/27-CRP 6.35 MEDS: GABRIEL. NO CURRENT BODY WEIGHT AVAILABLE. DIET RX: REGULAR W/ENSURE ENLIVE BID. PO INTAKE WAS 100% UP UNTIL YESTERDAY. PT NOT IN ROOM WHEN ATTEMPTED TO VISIT. EST NUTR NEEDS: [id number] KCALS AND 82-108 GM PROTEIN D-AT NUTRITION RISK W/SEVERE MALNUTRITION R/T INADEQUATE PROTEIN/KCAL INTAKE SECONDARY TO ALTERED APPETITE AEB NFPE, PT REPORT, (+)MST I-CONTINUE W/ENSURE ENLIVE BID M/E-GOAL: PO INTAKE >/=75% BY NEXT F/U 1)F/U PO INTAKE, SUPPLEMENT, AND POC IN 3-5 DAYS 2)ASSIST NEEDED
--- NOTE | 2017-01-28 18:48 | NUR ---
PATIENT UP TO BATHROOM, AMBULATED IN HALLS TODAY. INCREASED PAIN. DR. REYES VISITED AND CHANGED PAIN MEDS SOME. STARTED ON LYRICA. ROXICODONE 10 MG GIVEN AT 1625, OXYCONTIN ER 0845. DRESSING D/I TO BACK, HAS BACK BRACE FOR AMBULATING. CSM ADEQUATE, EXCEPT FOR BURNING SENSATION DOWN LEGS. IV ANTIBIOTICS CONTINUE.
--- NOTE | 2017-01-29 04:56 | NUR ---
Significant Event: Pt A&Ox3. VS stable, remains on RA. Still c/o burning pain down both legs. Gave PRN Ana Luisa 10mg @ 0318. Pt's personal pain MD was here and changed meds around. Started pt last night on lyrica and elavil. Still continues to get Oxycontin 30mg BID. Continue to encourage pt to get up and ambulate. Will walk to bathroom with brace, FWW, and gb. Pt has been having very hard stools. Requesting Milk of Mag this AM with his meds. Dressing to lumbar region remains C/D/I. Follow up: Continue plan of care.
--- NOTE | 2017-01-29 19:22 | NUR ---
Significant Event: PATIENT ALERT AND ORIENTED X3. BACK DRESSING C/D/I. CONTINUES TO C/O OF BURNING DOWN BILATERAL LEGS. RATES BURNING LEG PAIN 6-5 ON PAIN SCALE, RECEIVED ROXICODONE 1 TAB LAST AT 1537 AND ROUTINE OXYCONTIN 30MG AT 0947. AMBULATED IN [place] AND TO BATHROOM WITH 1 ASSIST, USE OF WALKER AND GAIT BELT, BACK BRACE ON WITH ACTIVITY. UP TO CHAIR. C/O NAUSEA, RECEIVED ZOFRAN IV AT 0646 WITH RELIEF. TO HAVE PICC LINE PLACE TOMORROW. PATIENT BP'S THIS AFTERNOON 96/66 AT 1250, 98/57 AT 1330, 100/65 AT 1440, 101/62 AT 1530, DR. REILLY INFORMED OF BP'S. Follow up: [facility] ON FRIDAY.
--- NOTE | 2017-01-30 03:45 | NUR ---
Significant Event: A/O X 3. IV SALINE LOCK INTACT. IS TO GET A PICC LINE PLACEMENT TODAY. HOME INFUSION TO SEE. HAS BURNING IN BILATERAL LEGS. UP WITH ONE ASSIST, GAITBELT BACKBRACE WALKER TO BR. VOIDS-PASSED GAS, NO BM. HAD JONNY 5MG AROUND 0330. HAD SCHEDULED OXYCONTIN 30MG AT HS, LYRICA AMBIEN AT HS. BILATERAL CALF PNEUMATICS ON. ALSO VOIDS IN URINAL AT BEDSIDE. Follow up:
--- NOTE | 2017-01-30 15:00 | NUR ---
RECEIVED REFERRAL TO [facility] FOR HOME INFUSION. PLAN OF DISCHARGE ON FRIDAY. I SPOKE TO ANA AND HE IS IN AGREEMENT TO HAVING HOME INFUSION. HE HAS HAD IT IN AUG OF THIS YEAR AND HIS SPOUSE DID THE INFUSIONS. HE WOULD LIKE TO HAVE [facility] THIS IS WHO HE HAD LAST TIME. I MADE REFERRAL TO TRAVON WITH [facility] SHE WOULD LIKE FOR ME TO FAX THE ORDERS ONCE THEY ARE COMPLETED. WITH THE NAME OF THE MEDICATION, THE DURATION AND DX. DR. REILLY NOTIFIED AND HE WILL BE HERE AROUND 1630 TO COMPLETE THE ORDERS. TRAVON HAD ME FAX [employer] AND SHE WILL START THE PRECERT. FAXZE REQUESTED INFO TO TIFFANIE THAT I HAVE AT THIS TIME.
--- NOTE | 2017-01-30 16:50 | NUR ---
Significant Event: Up to chair/BR with walker, back brace and 1 assist. Dressing dry and intact to back. CSM WNL. PICC placed today to rt upper arm. Oxycodone IR 5mg at 1354. Follow up:
--- NOTE | 2017-01-30 17:15 | NUR ---
RECEIVED ORDERS FROM DR. REILLY FOR HOME INFUSION. I NOTIFIED [facility] BUT THEIR OFFICE IS CLOSED FOR THE DAY. I AMD TOLD BY THE ANSWERING SERVICE THAT [facility] PREFERE THAT I FAX THE ODERS AND THEY WILL COMPLETE THEM FIRST THING IN THE MORNING SO THAT ARRANGMENTS CAN BE MADE FOR HOME INFUSION. TRAVON INFORMS ME THAT THEY HAVE A HOME HEALTH SERVICE THAT THEY WILL ARRANGE FOR PATIENT AND WILL BE THE SAME ONE THAT HE HAD LAST TIME AND PATIENT IS HAPPY ABOUT THIS.
--- NOTE | 2017-01-31 02:40 | NUR ---
Significant Event: A/O X 3. PICC LINE INTACT RIGHT UPPER ARM. IV SALINE LOCK INTACT LEFT WRIST, FLUSHES WELL. BACK DRSGS DRY-INTACT. AMBULATED TO BR WITH BACK BRACE ON, WALKER,GAITBELT, ONE ASSIST, VOIDED AND HAD SMALL BM. REPOSITIONS SELF IN BED. CALF PNEUMATICS ON. HAS BACK INCISIONAL SORENESS, RT LEG PAIN. HAS BURNING OF LEGS. HAD JONNY 5MG TAB AT 0107, PAIN RATE AT 7, LATER SLEEPING. HAD SCHEDULED OXYCONTIN 30MG AT 2043. POSSIBLE TO GO HOME TODAY. Follow up:
[2017-01-31 04:00] LABS: ANION GAP 9.3 (10.0-19.0); BLOOD UREA NITROGEN 17 mg/dL (6-24); CHLORIDE 99 mMol/L (96-110); CO2 29 mMol/L (22-32); CREATININE 0.8 mg/dL (0.6-1.3); POTASSIUM 4.3 mMol/L (3.7-5.1); SODIUM 133 mMol/L (135-145)
[2017-01-31 04:09] LABS: BASOPHIL % 0.7 %; EOSINOPHIL # 0.6 K/uL (0.0-0.5); EOSINOPHIL % 9.9 %; IMMATURE GRANULOCYTE % 0.3 %; LYMPHOCYTE # 1.2 K/uL (0.8-4.0); LYMPHOCYTE % 20.3 %; MCH 31.2 pg (27.0-34.0); MCHC 34.3 gm/dL (32.0-36.5); MCV 90.9 fl (83.0-98.0); MONOCYTE # 1.1 K/uL (0.0-1.0); MONOCYTE % 17.8 %; MPV 9.5 fl (9.4-12.4); NRBC % 0 /100WBC (0-0.00); PLATELET COUNT 258 K/uL (150-450); RBC 3.85 M/uL (4.00-6.00); RDW-CV 13.2 % (11.9-14.6)
--- NOTE | 2017-01-31 09:53 | NUR ---
SPOKE TO TRAVON WITH [facility] AND SHE INFORMS ME THAT THEY HAVE MADE ARRANGEMENTS FOR THE DAPTO TO BE DELIVERED TO PATIENT TOMORROW AND A [facility] NURSE WILL BE THERE TO DO THE TEACHING.
[2017-01-31] MEDS ORDERED: CUBICIN (NON-F500 MG IV (10:51)
[2017-01-31] MEDS ORDERED: ELAVIL25 MG PO (10:54)
[2017-01-31] MEDS ORDERED: DELTASONE2.5 MG PO (10:55)
[2017-01-31] MEDS ORDERED: LYRICA 150MG C150 MG PO (10:56)
--- NOTE | 2017-01-31 11:35 | NUR ---
FAXED FINAL ORDERS TO TIFFANIE WITH [facility] PATIENT IS PLANNING ON LEAVING LATER THIS AFTERNOON. UPDATED HIM THAT [facility] WILL HAVE THE MEDICATION DELIVERED TO HIS HOME TOMORROW AND [facility] WILL ALSO COME AND DO THE TEACHING FOR HOME INFUSION. PATIENT IS IN AGREEMENT TO THIS DISCHARGE PLAN.
--- NOTE | 2017-01-31 13:27 | NUR ---
A&O. SBA. VSS. PAIN MEDS LAST AT 1155. PICC PAL. BRACE ON WHEN UP. WAITING FOR DC TODAY.
--- NOTE | 2017-01-31 14:55 | NUR ---
A - NUTRITION FOLLOW-UP. LABS: NA 133, GLU 115, CRP 13.8 MEDS: ON PREDNISONE DIET: REGULAR W/ ENSURE ENLIVE BID. INTAKE 57% X9 MEALS; LAST 3 MEALS 01/30 100% X3. HAD GOOD BREAKFAST AND LUNCH TODAY PER PT. LIKES ENSURE ENLIVE. STATED THAT HE WILL GET SOME AFTER DISCHARGE. LEFT SOME COUPONS WITH PT. [facility] TODAY. EST NEEDS: [id number] KCAL, 82-108 GRAMS PROTEIN, FLUID NEEDS: 1ML/KCAL D - INADEQUATE ORAL INTAKE AT TIMES RELATED TO ALTERED APPETITE EVIDENCED BY PO 57% X9 MEALS. I - CONTINUE W/ ENSURE ENLIVE BID. M/E - GOAL: PT WILL BE ABLE TO TOLERATE >65% OF MEALS AND AT LEAST ONE ORAL SUPPLEMENT PER DAY IN 5-7 DAYS.
== END 2017-01-31 15:11 | disposition home health service (06) | DRG 458 ==
LOC: GMED 15:32 → G3N 16:26
PROVIDERS: Nurse Anesthetist, Certified Registered; Obstetrics & Gynecology Obstetrics; ADMIT Neurological Surgery
PROC: 0SG3071 Fusion of Lumbosacral Joint with Autologous Tissue Substitute, Posterior Approach, Posterior Column, Open Approach (ICD-10-PCS; principal; 2017-01-24)
PROC: 0SB40ZZ Excision of Lumbosacral Disc, Open Approach (ICD-10-PCS; principal; 2017-01-24)
DX: M46.27 Osteomyelitis of vertebra, lumbosacral region (principal); I10 Essential (primary) hypertension; M46.47 Discitis, unspecified, lumbosacral region; K59.00 Constipation, unspecified; M06.9 Rheumatoid arthritis, unspecified; M48.06 Spinal stenosis, lumbar region
CPT/HCPCS: C1751; J0878; J1170; J1642; J1720; J1885; J2001; J2060; J2405; J3010; J3370; J7030; J7040; J7050; J7512

== ENCOUNTER → 2017-02-04 | Outpatient (CLI) | payer MEDICAID ==
[~2017-02-04] MED LIST changes: +CUBICIN (NON-F500 MG IV; +DELTASONE2.5 MG PO; +ELAVIL25 MG PO; +LYRICA 150MG C150 MG PO; +OXYMORPHONE HCL30 MG PO; +OXYMORPHONE HCL5 MG PO; +SPIRIVA HA30 CAP/INH PO
[2017-02-05 09:10] LABS: HEMATOCRIT 36.9 % (37.0-53.0); HEMOGLOBIN 12.3 g/dL (12.0-17.0); MCH 30.8 pg (27.0-34.0); MCHC 33.3 gm/dL (32.0-36.5); WBC 7.9 K/uL (4.0-11.0)
[2017-02-05 09:11] LABS: CHLORIDE 101 mMol/L (96-110); CO2 28 mMol/L (22-32); MCV 92.3 fl (83.0-98.0); MPV 9.1 fl (9.4-12.4); PLATELET COUNT 466 K/uL (150-450); RDW-CV 13.4 % (11.9-14.6); SODIUM 136 mEq/L (135-145)
[2017-02-05 09:12] LABS: ALBUMIN 2.7 gm/dL (3.5-5.0); ALK PHOS 108 IU/L (33-138); ALT 35 IU/L (12-78); AST 21 IU/L (10-40); BLOOD UREA NITROGEN 11 mg/dL (6-24); CALCIUM 8.6 mg/dL (8.5-10.5); CPK 49 IU/L (35-332); CREATININE 0.8 mg/dL (0.6-1.3); TOTAL BILIRUBIN 0.2 mg/dL (0.0-1.5)
[2017-02-05 10:02] LABS: ABSOLUTE NEUTROPHIL CT (ANC) 5.1 K/uL (1.4-9.0); BANDED NEUTROPHIL # 1.3 K/uL (0.0-0.1); BANDED NEUTROPHILS % 17 %; LYMPHOCYTE # 1.3 K/uL (0.8-4.0); LYMPHOCYTE % 17 %; MONOCYTE # 0.6 K/uL (0.0-1.0); SEGMENTED NEUTROPHIL # 3.8 K/uL (1.4-9.0); SEGMENTED NEUTROPHIL % 48 %
== END | disposition disaster alternative care site (69) ==
LOC: LOC 17:46
PROVIDERS: Neurological Surgery
DX: M46.40 Discitis, unspecified, site unspecified (principal); M46.28 Osteomyelitis of vertebra, sacral and sacrococcygeal region

== ENCOUNTER 2017-02-11 21:13 | Inpatient (IN) | payer MEDICAID ==
[~2017-02-11] VITALS: Ht 175.3 cm; Wt 55.5 kg
--- NOTE | ~2017-02-11 | HP ---
PATIENT'S NAME: ANA RICHARDS [facility] AGE: 56 Y [address] ROOM: [place] [address] LOCATION: [facility] ADMIT DATE: 02/12/2017 History & Physical DISCHARGE DATE: FAMILY PHYSICIAN: PHYSICIAN, UNKNOWN ATTENDING PHYSICIAN: Clarisa Noyola DATE OF SERVICE: 02/12/2017 PATIENT IDENTIFICATION: Ana Richards is a 56-year-old male. PRESENTING COMPLAINT: Swelling at upper end of lumbar incision and lower back pain. HISTORY OF PRESENT ILLNESS: The patient was admitted about 3 weeks ago with diagnosis of diskitis/osteomyelitis at the L5-S1 level. He underwent L5-S1 diskectomy decompression. The infection was Staphylococcus epidermidis and the patient was continued on antibiotics through a PICC line after he was discharged home. He was seen in the clinic after discharge and had his deyvi removed. On February 10, the patient and his noticed swelling at the upper end of the patient's incision. The swelling apparently got bigger yesterday and the home health nurse recommended that the patient should come to the emergency room. The patient was seen here in the emergency room and had an MRI scan of his lumbar spine. The lumbar MRI indicated a complex paravertebral fluid collection on the right side at L5 suspicious for either infected seroma or abscess. For this reason, I was consulted to see the patient. PAST MEDICAL HISTORY: Significant for rheumatoid arthritis and Uasxu-Onugyhfwi-Dxwfj syndrome. 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 He thinks the infection may have happened during that incident. CURRENT MEDICATIONS: 1. Spiriva inhaler. 2. Norvasc. 3. Flexeril. 4. Tylenol. 5. Maalox. 6. Oxymorphone. 7. Daptomycin. 8. Elavil. 9. Lyrica. PATIENT'S NAME: ANA RICHARDS [facility] AGE: 56 Y [address] ROOM: [place] [address] LOCATION: [facility] ADMIT DATE: 02/12/2017 History & Physical DISCHARGE DATE: FAMILY PHYSICIAN: PHYSICIAN, UNKNOWN ATTENDING PHYSICIAN: Clarisa Noyola 10. Coreg. ALLERGIES: NO KNOWN DRUG ALLERGIES. SOCIAL HISTORY: The patient is a smoker. FAMILY HISTORY: There is no family history relevant to present symptoms. REVIEW OF SYSTEMS: Patient denies any fever or chills. His review of systems is negative on all systems except as described in the history of present illness. PHYSICAL EXAMINATION: GENERAL: The patient is a gaunt-looking middle-age gentleman. VITAL SIGNS: In the ER, his pulse rate is 88, blood pressure is 135/86 with a temperature of 97.0. NEUROLOGICAL: His speech is intact. His cranial nerves: No deficits seen. Motor examination: The patient has normal strength in his upper extremities. He has normal strength in his left leg, but he has antalgic weakness, 4/5, in the right leg. HEAD: His head is atraumatic. EYES AND EARS: No evidence of trauma. RESPIRATORY SYSTEM: Patient is not short of breath at bedside. CARDIOVASCULAR: Heart sounds present. There is no pedal edema. BACK: His back incision has healed well. There is a small swelling at the superior part of the incision. This swelling appears to be within normal limits for postoperative lumbar laminectomy/diskectomy. It is slightly fluctuant around the sides. REVIEW OF IMAGING STUDIES: The patient has had an MRI of the lumbar spine performed this evening. The MRI reported as showing a complex posterior paravertebral fluid collection centered on the right side at the L5 level measuring 3.7 x 3.8 cm transverse. There is no connection to the spinal canal. LABORATORY INVESTIGATIONS: Sodium is 137, potassium is 3.6, chloride is 106, calcium is 9.0, glucose is 114. White count is 7.1, hemoglobin is 12.2. Sedimentation rate is 95. C- reactive protein is 8.55. ASSESSMENT: A 56-year-old male with swelling at the top part of his incision as well as PATIENT'S NAME: MAURICE ANA Harley [facility] AGE: 56 Y [address] ROOM: [address] [address] LOCATION: [facility] ADMIT DATE: 02/12/2017 History & Physical DISCHARGE DATE: FAMILY PHYSICIAN: PHYSICIAN, UNKNOWN ATTENDING PHYSICIAN: Clarisa Noyola back pain. MRI shows fluid collection in the paravertebral region on the right side at L5. MEDICAL DECISION MAKING: The patient is being admitted to the hospital for further workup. We will try and get a CT-guided aspiration of the fluid collection to determine if it is infection or not to decide whether to continue with the daptomycin that the patient is currently taking or to modify his medications. The Infectious Disease service will also be consulted to follow the patient while he is in the hospital and make recommendations for additional antibiotic treatments as may be necessary. MD CATALINA CLIFFORD/marcie /[id number] D: [id number] T: [id number] HISTORY & PHYSICAL
--- NOTE | ~2017-02-11 | DS ---
PATIENT'S NAME: ANA RICHARDS [facility] AGE: 56 Y [address] ROOM: [address] [address] LOCATION: [facility] ADMIT DATE: 02/12/2017 Discharge Summary DISCHARGE DATE: 02/15/2017 FAMILY PHYSICIAN: Alfredo Tyler MD ATTENDING PHYSICIAN: Clarisa Noyola REASON FOR ADMISSION: This patient is a 56-year-old gentleman who presented with swelling at the upper end of his lumbar incision accompanied by a low back pain. His past history is significant for diskectomy and decompression performed for diskitis and osteomyelitis of the L5-S1 level. The patient has been on long-term antibiotics since the procedure was done. On around the 10 of February, he was noticed to have developed a swelling around the incision. He was, therefore, brought to the emergency room where he was evaluated and I was consulted to see him. TREATMENT RENDERED: The patient underwent a CT-guided aspiration of the fluid collection in his back. This was performed on February 12, 2017. The cultures did not grow any organisms. The patient continued on his antibiotics as prescribed by Infectious Disease. His back pain improved, and the swelling on his spine also became smaller. By the 15 of February, the patient had met all requirements for discharge home. He has since been released and will be followed up in the Neurosurgical Clinic and Infectious Disease Clinic regarding his original diskitis and osteomyelitis. MD ROSA ISELA CLIFFORDO/nisal /[id number] d: 02/20/17 0119 t: 02/20/17 0904, DISCHARGE SUMMARY
--- NOTE | ~2017-02-11 | ER ---
PATIENT'S NAME: ANA RICHARDS [facility] AGE: 56 Y [address] ROOM: [address] [address] LOCATION: [facility] ADMIT DATE: 02/12/2017 ER/Outpatient Report DISCHARGE DATE: FAMILY PHYSICIAN: Alfredo Tyler MD ATTENDING PHYSICIAN: Clarisa Noyola ADDENDUM: This is an addendum to Rola Turner's dictation. Please see her dictation. The patient recently had surgery for osteomyelitis, diskitis at L5-S1 by Dr. aVlencia. He presented today with worsening pain and swelling noted in his back. He underwent MRI evaluation, which does show evidence of an indeterminate 2.7 x 3.8 right posterior paravertebral fluid collection and given the complexity suspicious for infected seroma and/or abscess. There was no connection to the spinal cord. There is sequela of diskitis and osteomyelitis at L5-S1 as described. There is left-sided facet joint edema consistent with at least facet arthrosis and possibly septic arthritis. There is mild L4-L5 diskitis. I did discuss the case with Dr. Noyola, who is on-call for Spinal and Neurosurgery today. He has seen and evaluated the patient. He will admit the patient for further evaluation, treatment, and management. DISPOSITION: The patient is admitted under the care of Dr. Noyola in stable condition. DO MEHDI SPAULDING/marcie /[id number] d: 02/12/17 0405 t: 02/19/17 1623, OUTPATIENT REPORT
--- NOTE | ~2017-02-11 | CON ---
PATIENT'S NAME: ANA RICHARDS [facility] AGE: 56 Y [address] ROOM: [address] [place], [place] [address] LOCATION: [facility] ADMIT DATE: 02/12/2017 Consultation DISCHARGE DATE: FAMILY PHYSICIAN: Alfredo Tyler MD ATTENDING PHYSICIAN: Clarisa Noyola DATE OF CONSULTATION: 02/13/2017 REFERRING PHYSICIAN: Mario Maria MD HOSPITAL CONSULTATION REASON FOR CONSULTATION: Medical management. REQUESTING PHYSICIAN: Seen at the request of Dr. Noyola. CHIEF COMPLAINT: Back pain. HISTORY OF PRESENT ILLNESS: This is a 56-year-old, male with a past medical history of hypertension, COPD, rheumatoid arthritis, and chronic back pain who presents to the hospital on 02/12/2017 with swelling at the upper portion of his lumbar incision and low back pain. He was admitted under the service of Dr. Noyola. He underwent a CT-guided aspiration of the lumbar fluid collection yesterday. We have been asked to see him for medical management. The patient states that he originally presented in August with diskitis and osteomyelitis of the L5 and S1. This did grow out Staphylococcus epidermidis. He had been on long- term IV antibiotics and was subsequently changed to p.o. On 01/24/2017, he had reoccurrence of the L5-S1 diskitis and osteomyelitis. At that time, he underwent L5-S1 diskectomy and debridement, and posterior lateral noninstrumented fusion of L5-S1. After surgery, he was placed on daptomycin which has been continued. He is currently still on daptomycin IV. MRI scan was performed on 02/11/2017 which did show irregularity, edema, and enhancement of the disk space at L5-S1. Residual diskitis and osteomyelitis could not be excluded. There was also a 3.7 cm fluid collection. The patient states that he continues to have back pain, rates it at a 6/10. He also has complaints of bilateral lower extremity pain. The leg pain fluctuates between the right and left leg. He also has complaints of bilateral lower extremity numbness and tingling intermittently. Currently, he does have a headache, rates it at a 3/10. He does have flashes in bilateral eyes. Denies any blurred vision, or double vision. States that this usually gets better with sleep. He states that he has had a cough particularly first thing in the morning with yjkif-gu-rzcns sputum production. He also does note shortness of PATIENT'S NAME: ANA RICHARDS [facility] AGE: 56 Y [address] ROOM: [id number] [place], [place] [address] LOCATION: [facility] ADMIT DATE: 02/12/2017 Consultation DISCHARGE DATE: FAMILY PHYSICIAN: Alfredo Tyler MD ATTENDING PHYSICIAN: Clarisa Noyola breath first thing in the morning. He is requesting his Spiriva inhaler. He denies any abdominal pain, vomiting, or diarrhea. States that he does have noted constipation and intermittent nausea for which he usually takes Zofran. Denies any skin rashes. Denies chest pain. No dysuria, urgency, or frequency of urine. PAST MEDICAL HISTORY: 1. Ecoaf-Shyhvkywr-Qlavv status post open heart surgery in 1978. 2. Pnrfe-Dlujgvqkw-Egovr ablation 7 years ago. 3. Hypertension. 4. COPD. 5. Rheumatoid arthritis. 6. GERD. 7. Chronic back pain. 8. Mitral regurgitation. 9. History of kidney injury 9 years ago. Was on dialysis for 4 weeks. SOCIAL HISTORY: The patient is . He has five children. He previously worked at [employer] prior to his August hospitalization, has not worked since. He stopped smoking on January 24, he previously smoked for 30 years, 1 to 1-1/2 pack per day. Denies alcohol use. FAMILY HISTORY: Father: Hypertension, rheumatoid arthritis, and osteoarthritis. Mother, hypertension. Sister, hypertension. Daughter, diabetes mellitus. Son, cancer. ALLERGIES: NO KNOWN MEDICAL ALLERGIES. REVIEW OF SYSTEMS: All systems have been reviewed and are negative except for what is mentioned in the HPI. PHYSICAL EXAMINATION: VITAL SIGNS: Temperature 98.4, heart rate 88, blood pressure 115/76, 95% on room air, and respirations 16. Weight 55.5 kg. GENERAL: This is a 56-year-old male in no acute distress. Resting in bed. HEENT: Head is normocephalic and atraumatic. Teeth show poor dentition. Pupils equal, round, and reactive to light. SKIN: Warm and dry without lesions or rashes. NECK: Supple. LUNGS: Respirations diminished throughout. No rales, crackles, or wheezing. PATIENT'S NAME: ANA RICHARDS [facility] AGE: 56 Y [address] ROOM: [address] [place], [place] [address] LOCATION: [facility] ADMIT DATE: 02/12/2017 Consultation DISCHARGE DATE: FAMILY PHYSICIAN: Alfredo Tyler MD ATTENDING PHYSICIAN: Clarisa Noyola Dyspnea with a full sentence is noted. HEART: Regular rhythm and rate. No murmurs or extra sounds. ABDOMEN: Bowel sounds are soft. Bowel sounds are positive. Abdomen is soft, nontender to palpation. No organomegaly noted. MUSCULOSKELETAL: Normal muscle tone. EXTREMITIES: No edema. Pulses 2+ throughout. PICC line is noted on the right upper extremity. No calf tenderness. Extremities are warm to touch. NEUROLOGIC: Cranial nerves 2 through 12 grossly intact. Sensation is intact to light touch throughout. DIAGNOSTIC STUDIES: Results of aspiration done on 02/12/2017; gram stain, no organisms observed. Culture is no growth at one day. Laboratory data obtained on 02/11/2017 shows a procalcitonin of less than 0.05. Lactate of 0.9. WBC 7.1, hematocrit 35.7, hemoglobin 12.2, and platelets 370,000. Sodium 137, potassium 3.6, glucose 114, BUN 9, and creatinine 0.9. Alkaline phosphatase 96, AST 22, ALT 19, GFR greater than 90, and total bilirubin 0.3. IMPRESSION AND PLAN: 1. Chronic respiratory failure secondary to chronic obstructive pulmonary disease: We will go ahead and restart the patient's home Spiriva as per respiratory severity scoring and encourage flutter valve and good pulmonary toileting. He does not appear to be in exacerbation. At this point, he is not requiring any oxygen. 2. Constipation: Likely this is opioid induced with his chronic pain medications. We will go ahead and start MiraLAX twice daily. Continue Colace. 3. Essential hypertension: Continue the patient's Norvasc and Coreg. Current blood pressures are stable. 4. Gastroesophageal reflux disease: We will place the patient on Protonix 40 mg p.o. daily. 5. Rheumatoid arthritis: He is currently off prednisone and leflunomide. 6. Chronic pain: This is managed by Dr. Jones, who he is under a pain contract with. Continue home pain regimen. 7. History of L5-S1 diskitis and osteomyelitis, on long-term antibiotics with new swelling in the incision status post CT-guided aspiration: Aspiration cultures currently have shown no growth to date while he is on daptomycin IV. We will go ahead and recheck laboratory data; CBC, and a BMP now. He has been afebrile. Procalcitonin and lactate were both within normal limits on 02/11/2017. 8. Urinary retention: The patient has previously been on Flomax 0.4 mg p.o. daily. We will go ahead and resume this medication as it was at home. 9. Deep venous thrombosis prophylaxis: We will manage with sequential PATIENT'S NAME: ANA RICHARDS [facility] AGE: 56 Y [address] ROOM: [address] [address] LOCATION: [facility] ADMIT DATE: 02/12/2017 Consultation DISCHARGE DATE: FAMILY PHYSICIAN: Alfredo Tyler MD ATTENDING PHYSICIAN: Clarisa Noyola compression devices for now. Thank you for allowing us to participate in the care of this patient as he has been hospitalized at [facility]. YEIMI IRENE APRN FOR MD DENISE CIFUENTES/marcie /[id number] d: 02/13/[id number] t: 02/18/17 0354, CONSULTATION REPORT
--- NOTE | ~2017-02-11 | ER ---
PATIENT'S NAME: ANA RICHARDS [facility] AGE: 56 Y [address] ROOM: [place] [address] LOCATION: [facility] ADMIT DATE: 02/12/2017 ER/Outpatient Report DISCHARGE DATE: FAMILY PHYSICIAN: PHYSICIAN, UNKNOWN ATTENDING PHYSICIAN: Clarisa Noyola Time of Arrival: 2100 hours. Time of Exam: 2120 hours. CHIEF COMPLAINT: Back swelling. HISTORY OF PRESENT ILLNESS: The patient's reports that he is status post spinal surgery 10 days ago for L5-S1 discitis with osteomyelitis. They debrided it and started on IV antibiotics. He had the deyvi removed a couple of days ago at Dr. Valencia's office. Everything was looking good at that time. Home Health did come tonight and to do his IV antibiotics and noticed swelling at the superior aspect of the incision. The patient states the incision area is very tender to touch, had been fine this morning, but seems to be worse this evening. The Home Health nurse did draw a CBC, sedimentation rate, Chem panel, CPK, and CRP. The patient denies having any nausea or vomiting. Has not had any change in his bowel or bladder pattern. ALLERGIES: HE HAS NO KNOWN ALLERGIES. CURRENT MEDICATIONS: On his chart and reviewed by me. PAST MEDICAL HISTORY: COPD, rheumatoid arthritis, hypertension, Npkiq-Rvnjdvgzm-Vcizo syndrome, EtOH abuse. He did stop drinking in June of 2016. He has had recurrent L5-S1 discitis with osteomyelitis. PAST SURGICAL HISTORY: Include heart surgery for the WPW, right L5 foraminotomy, autograft bone L5-S1 debridement, and other multiple back surgeries. SOCIAL HISTORY: He does smoke a pack per day. Denies use of drugs and alcohol at this time. REVIEW OF SYSTEMS: Negative other than those mentioned in the HPI. PATIENT'S NAME: ANA RICHARDS [facility] AGE: 56 Y [address] ROOM: [address] [address] LOCATION: [facility] ADMIT DATE: 02/12/2017 ER/Outpatient Report DISCHARGE DATE: FAMILY PHYSICIAN: PHYSICIAN, UNKNOWN ATTENDING PHYSICIAN: Clarisa Noyola PHYSICAL EXAMINATION: VITAL SIGNS: He weighs 55.5 kg, blood pressure is 135/86, pulse of 88, respirations 16, temperature of 97, and O2 saturation was 93% on room air. GENERAL: He is awake, alert, and oriented x4. SKIN: Wann, warm, and dry. RESPIRATIONS: Even and nonlabored. Lung sounds are clear throughout. HEART: Regular rate and rhythm. ABDOMEN: Soft, nondistended. Bowel sounds are present. EXTREMITIES: No peripheral edema is noted. MUSCULOSKELETAL: The patient lumbar incisional area is well approximated. It is tender to touch. He does feel as though there is fluid around it. It is not wayne. Slightly warm to touch. The patient has his PICC line in. He was given Zofran 4 mg IV and morphine 2 mg IV. LABORATORY DATA: The CBC from home health: White count was 7.1, hemoglobin was 12.2 with hematocrit of 35.7, sedimentation rate is at 95. Chem panel: Sodium is 137, potassium 3.6, chloride 102, BUN is 9 with creatinine 0.9. His CPK was 223 and CRP was 8.55. We catrachito a lactate, it was 0.9 and procalcitonin was less than 0.05. CT scan was completed. Radiology reports limited evaluation of the paravertebral soft tissue. We did it without contrast. It does show some postoperative disk space narrowing, mild central canal stenosis, moderate severe bilateral neuroforaminal narrowing worsening on the right. PLAN: The patient was given Dilaudid 0.5 mg IV and an MRI was ordered. Report was given to Dr. Lee at the change of shift. He will take over the patient's care. JUANCARLOS LYNNE APRN FOR DO DEYSI SPAULDING/marcie /[id number] d: 02/12/17251 t: 02/19/17 1626, OUTPATIENT REPORT
[~2017-02-11 21:13] MED LIST changes: -SPIRIVA HA30 CAP/INH PO
[2017-02-12] MEDS ORDERED: COREG12.5 MG PO (03:14)
[2017-02-13 17:59] LABS: BASOPHIL % 0.5 %; EOSINOPHIL # 0.8 K/uL (0.0-0.5); EOSINOPHIL % 11.9 %; HEMATOCRIT 34.3 % (37.0-53.0); HEMOGLOBIN 11.6 g/dL (12.0-17.0); IMMATURE GRANULOCYTE % 0.5 %; LYMPHOCYTE # 1.3 K/uL (0.8-4.0); LYMPHOCYTE % 20.3 %; MCH 30.4 pg (27.0-34.0); MCHC 33.8 gm/dL (32.0-36.5); MONOCYTE % 14.9 %; NEUTROPHIL # (ANC) 3.3 K/uL (1.4-9.0); NEUTROPHIL % 51.9 %; NRBC % 0 /100WBC (0-0.00); PLATELET COUNT 319 K/uL (150-450); RBC 3.81 M/uL (4.00-6.00); RDW-CV 13.4 % (11.9-14.6); WBC 6.4 K/uL (4.0-11.0)
[2017-02-13 18:18] LABS: ANION GAP 9.3 (10.0-19.0); BLOOD UREA NITROGEN 10 mg/dL (6-24); CALCIUM 8.6 mg/dL (8.5-10.5); CHLORIDE 101 mMol/L (96-110); CO2 30 mMol/L (22-32); CREATININE 0.9 mg/dL (0.6-1.3); POTASSIUM 4.3 mMol/L (3.7-5.1); SODIUM 136 mMol/L (135-145)
[2017-02-14 05:38] LABS: ANION GAP 12.1 (10.0-19.0); BLOOD UREA NITROGEN 9 mg/dL (6-24); CALCIUM 8.5 mg/dL (8.5-10.5); CHLORIDE 102 mMol/L (96-110); CO2 28 mMol/L (22-32); CREATININE 0.8 mg/dL (0.6-1.3); POTASSIUM 4.1 mMol/L (3.7-5.1); SODIUM 138 mMol/L (135-145)
[2017-02-14 05:43] LABS: BASOPHIL % 0.7 %; EOSINOPHIL # 0.8 K/uL (0.0-0.5); EOSINOPHIL % 13.2 %; HEMATOCRIT 33.5 % (37.0-53.0); IMMATURE GRANULOCYTE % 0.5 %; LYMPHOCYTE # 1.4 K/uL (0.8-4.0); MCH 29.7 pg (27.0-34.0); MCHC 32.8 gm/dL (32.0-36.5); MCV 90.5 fl (83.0-98.0); MONOCYTE # 0.9 K/uL (0.0-1.0); MONOCYTE % 16.3 %; MPV 9.3 fl (9.4-12.4); NEUTROPHIL # (ANC) 2.6 K/uL (1.4-9.0); NEUTROPHIL % 45.3 %; NRBC % 0 /100WBC (0-0.00); PLATELET COUNT 313 K/uL (150-450); RDW-CV 13.3 % (11.9-14.6); WBC 5.8 K/uL (4.0-11.0)
[2017-02-15] MEDS ORDERED: SPIRIVA HA30 CAP/INH PO (13:12)
== END 2017-02-15 14:10 | disposition home health service (06) | DRG 541 ==
LOC: GMED 21:13 → G3N 02-12 01:37 → GMSU 02-14 10:58
PROVIDERS: Nurse Practitioner Family; ADMIT Neurological Surgery
DX: M86.9 Osteomyelitis, unspecified (principal); I10 Essential (primary) hypertension; M46.40 Discitis, unspecified, site unspecified; I45.6 Pre-excitation syndrome; J44.9 Chronic obstructive pulmonary disease, unspecified; K21.9 Gastro-esophageal reflux disease without esophagitis; I34.0 Nonrheumatic mitral (valve) insufficiency
CPT/HCPCS: A9577; J0878; J1170; J2270; J2405; J2997; J7040; J7050

== ENCOUNTER → 2017-02-11 | Outpatient (CLI) | payer MEDICAID ==
[2017-02-11 19:55] LABS: HEMATOCRIT 35.7 % (37.0-53.0); HEMOGLOBIN 12.2 g/dL (12.0-17.0); MCHC 34.2 gm/dL (32.0-36.5); MCV 90.8 fl (83.0-98.0); MPV 9.4 fl (9.4-12.4); RBC 3.93 M/uL (4.00-6.00); RDW-CV 13.3 % (11.9-14.6); WBC 7.1 K/uL (4.0-11.0)
[2017-02-11 19:56] LABS: PLATELET COUNT 370 K/uL (150-450)
[2017-02-11 20:14] LABS: ALBUMIN 2.8 gm/dL (3.5-5.0); ALK PHOS 96 IU/L (33-138); ALT 19 IU/L (12-78); ANION GAP 9.6 (10.0-19.0); AST 22 IU/L (10-40); BLOOD UREA NITROGEN 9 mg/dL (6-24); CHLORIDE 102 mMol/L (96-110); CO2 29 mMol/L (22-32); CPK 223 IU/L (35-332); CREATININE 0.9 mg/dL (0.6-1.3); POTASSIUM 3.6 mMol/L (3.7-5.1); SODIUM 137 mMol/L (135-145)
[2017-02-11 20:15] LABS: TOTAL BILIRUBIN 0.3 mg/dL (0.0-1.5)
[2017-02-11 20:38] LABS: ABSOLUTE NEUTROPHIL CT (ANC) 4.1 K/uL (1.4-9.0); LYMPHOCYTE # 1.1 K/uL (0.8-4.0); LYMPHOCYTE % 16 %; MONOCYTE # 1.2 K/uL (0.0-1.0); SEGMENTED NEUTROPHIL # 4.1 K/uL (1.4-9.0); SEGMENTED NEUTROPHIL % 57 %
== END ==
LOC: LOC 19:48
PROVIDERS: Neurological Surgery
DX: M46.40 Discitis, unspecified, site unspecified (principal); M46.28 Osteomyelitis of vertebra, sacral and sacrococcygeal region